=== PATIENT | female | born 1960 | race Caucasian/White ===

== ENCOUNTER 2017-02-13 13:32 | Emergency (ER) | payer OTHER ==
[~2017-02-13] VITALS: Ht 160 cm; Wt 97.1 kg
[~2017-02-13 13:32] MED LIST: HYDR25TA PO; PRED20TA PO
[2017-02-13 13:50] VITALS: BP 147/76
[2017-02-13] MEDS ORDERED: MUPI15CR TP (14:28)
--- NOTE | 2017-02-13 14:28 | PHYS DOC ---
Past Medical History Past Medical History: Arthritis, Other Additional Past Medical Histor: Cerebral Palsy, RA, OSTEOARTHRITIS, LUPUS, NERVE PAIN Past Surgical History: Cholecystectomy, Tubal ligation, Other Additional Past Surgical Histo: Several tendon stretching surgeries for CP, Tubal reversal Alcohol Use: Rarely Drug Use: None Adult General Chief Complaint Chief Complaint: SKIN PROBLEM HPI HPI Patient is a 56 year old female with a history of osteoarthritis, rheumatoid arthritis, currently on Humira, and lupus, who presents today with infection on the right posterior thigh that began 3 days ago. Patient states she's been applying triamcinolone cream to the are with no relief. Patient states she contacted her doctor who requested her to come to the ED to be given antibiotics. Patient states she is immunocompromised due to Humira hence the reason she has to be given antibiotics. Patient denies any fever. Review of Systems Review of Systems Constitutional: Denies fever or chills [] Eyes: Denies change in visual acuity, redness, or eye pain [] HENT: Denies nasal congestion or sore throat [] Musculoskeletal: Denies back pain or joint pain [] Integument: Infection to the right posterior thigh Neurologic: Denies headache, focal weakness or sensory changes [] Endocrine: Denies polyuria or polydipsia [] Allergies Allergies Allergies Coded Allergies Type Severity Reaction Last Updated Verified tramadol Adverse Reaction Mild gi upset 12/17/15 Yes Uncoded Allergies Type Severity Reaction Last Updated Verified fiberglass Allergy Intermediate Resp difficulty, rash and swelling. 08/25/16 Physical Exam Physical Exam Constitutional: Well developed, well nourished, no acute distress, non-toxic appearance. [] HENT: Normocephalic, atraumatic, bilateral external ears normal, oropharynx moist, no oral exudates, nose normal. [] Eyes: PERRLA, EOMI, conjunctiva normal, no discharge. [] Skin: Right posterior distal thigh with a small area of erythema approximately 3 x 3 cm. There is peeled skin to the area, no drainage. +2 right pedal pulse. Cap refill less than 2 seconds the right lower extremity. Back: No tenderness, no CVA tenderness. [] Extremities: No tenderness, no cyanosis, no clubbing, ROM intact, no edema. [] Neurologic: Alert and oriented X 3, normal motor function, normal sensory function, no focal deficits noted. [] Psychologic: Affect normal, judgement normal, mood normal. [] EKG EKG [] Radiology/Procedures Radiology/Procedures [] Course & Med Decision Making Course & Med Decision Making Pertinent Labs and Imaging studies reviewed. (See chart for details) Patient has a small area of skin infection on the right posterior thigh, the area is too small to require systemic antibiotics. DC with Bactroban. She is immune compromise. No tetanus given in the ED. Instructed to keep the area clean and dry and follow-up with the primary care doctor in 1-2 weeks. Dragon Disclaimer Dragon Disclaimer This electronic medical record was generated, in whole or in part, using a voice recognition dictation system. Departure Departure Impression: Primary Impression: Bacterial skin infection of leg Disposition: HOME, SELF-CARE Condition: STABLE Referrals: JOSE FRANCISCO CASTELLANOS MD (PCP) Follow-up with your own doctor in 1-2 weeks Patient Instructions: Skin Infections Additional Instructions: You were seen for skin infection on the right lower extremity. Use the prescribed antibiotic cream as ordered. Follow-up with your doctor in 1-2 weeks. Scripts Mupirocin Calcium (BACTROBAN CREAM) 15 Gm Cream..g. 1 SYED TP TID, #30 GM Prov: JOSE LARIOS APRN 02/13/17 Problem Qualifiers Primary Impression: Bacterial skin infection of leg Laterality: right Qualified Codes: L03.115 - Cellulitis of right lower limb JOSE LARIOS APRN February 13, 2017 14:28
== END 2017-02-13 14:50 | disposition home or self-care (01) ==
LOC: ER 13:32
DX: L08.89 Other specified local infections of the skin and subcutaneous tissue (principal); M19.90 Unspecified osteoarthritis, unspecified site; Z88.6 Allergy status to analgesic agent
CPT/HCPCS: 99283

== ENCOUNTER 2017-09-15 19:04 | Emergency (ER) | payer OTHER ==
[~2017-09-15] VITALS: Ht 162.6 cm; Wt 100.2 kg
[~2017-09-15 19:04] MED LIST changes: +MUPI15CR TP
[2017-09-15 20:06] VITALS: BP 134/96
[2017-09-15 20:49] LABS: BASO % 1 % (0-3); EOS % 2 % (0-3); HEMOGLOBIN 12.3 g/dL (12.0-15.5); LYMPH # 1.3 x10^3/uL (1.0-4.8); LYMPH % 51 % (24-48); MEAN CORPUSCULAR HEMOGLOBIN 35 pg (25-35); MEAN CORPUSCULAR HGB CONC 34 g/dL (31-37); MEAN CORPUSCULAR VOLUME 102 fL (79-100); MONO % 20 % (0-9); NEUT % 26 % (31-73); PLATELET COUNT 220 x10^3/uL (140-400); RED BLOOD COUNT 3.52 x10^6/uL (3.50-5.40); RED CELL DISTRIBUTION WIDTH 14.5 % (11.5-14.5); WHITE BLOOD COUNT 2.7 x10^3/uL (4.0-11.0)
[2017-09-15 20:57] LABS: OBC FLU VALID
[2017-09-15 21:01] LABS: CALCIUM 8.5 mg/dL (8.5-10.1); CREATININE 0.7 mg/dL (0.6-1.0); GFR 86.6; POTASSIUM 3.2 mmol/L (3.5-5.1)
[2017-09-15 21:09] LABS: ALBUMIN 3.6 g/dL (3.4-5.0); ALBUMIN/GLOBULIN RATIO 1.1 (1.0-1.7); TOTAL BILIRUBIN 0.3 mg/dL (0.2-1.0); TOTAL PROTEIN 6.8 g/dL (6.4-8.2)
[2017-09-15 21:11] LABS: % BASOS 1 % (0-3); ANISOCYTOSIS SLIGHT; PLT ESTIMATE ADEQUATE (ADEQUATE)
[2017-09-15 22:08] LABS: BILIRUBIN,URINE NEGATIVE (NEG); GLUCOSE,URINE NEGATIVE (NEG); NITRITE,URINE NEGATIVE (NEG); PROTEIN,URINE NEGATIVE (NEG-TRACE); UROBILINOGEN,URINE 0.2 mg/dL (0.2 mg/dL)
[2017-09-15 22:20] LABS: BACTERIA,URINE 0 /HPF (0-FEW); RBC,URINE 0 /HPF (0-2); SQUAMOUS EPITHELIAL CELL,UR FEW /LPF
[2017-09-15] MEDS ORDERED: FLUCONAZOLE 100 MG TABLET. PO ONE (23:00)
[2017-09-15] MEDS ORDERED: POTASSIUM CHLORIDE 20 MEQ/15 ML ORAL LIQUID. PO ONE (23:15)
[2017-09-15] MEDS ORDERED: POTASSIUM CHLORIDE 20 MEQ TABLET.ER. PO ONE (23:19)
--- NOTE | 2017-09-16 01:52 | ED.ADGEN ---
Past Medical History Past Medical History: Arthritis, Other Additional Past Medical Histor: Cerebral Palsy, RA, OSTEOARTHRITIS, LUPUS, NERVE PAIN Past Surgical History: Cholecystectomy, Tubal ligation, Other Additional Past Surgical Histo: Several tendon stretching surgeries for CP, Tubal reversal Alcohol Use: Occasionally Drug Use: Marijuana Adult General Chief Complaint Chief Complaint: MULTIPLE COMPLAINTS HPI HPI Patient is a 56 year old woman, history of rheumatoid arthritis for which she receives Humira injections, cerebral palsy, who presents to the emergency department with complaint of nasal congestion, cough is nonproductive, generalized malaise that began several days ago. Patient states that she received her Humira injection on Friday, states that she went to a baby shower the next day, and began feeling ill the day afterwards. She states that she's had chills at home, and subjective fevers, states she has not taken any her antipyretics, noted be afebrile in the emergency department. She states she's also had multiple sodas of loose brown stool, no blood or bile, denies any vomiting, states that she's had some abdominal cramping which is currently resolved. No nausea, no chest pain or shortness breath, no focal weakness, numbness or tingling, any swelling extremities, any rashes. She states she's been treating herself at home using hot tea, and antihistamine medication. Patient states he did receive her flu vaccination. She states that she contacted her doctor today, was told to come to the ED for evaluation to make sure that she does not have the flu. Patient states that she also experiencing itching and concern for yeast infection in the groin region, states she been treated with nystatin by her primary care provider feels that it is not working. Review of Systems Review of Systems Constitutional: Subjective chills, fever, generalized malaise. Eyes: Denies change in visual acuity. [] HENT: Denies nasal congestion or sore throat. [] Respiratory: Denies cough or shortness of breath. [] Cardiovascular: Denies chest pain or edema. [] GI: Abdominal cramping, nausea, no vomiting, no bloody stools, multiple episodes of loose brown stool. : Denies dysuria. [] Musculoskeletal: Denies back pain or joint pain. [] Integument: Denies rash. [] Neurologic: Denies headache, focal weakness or sensory changes. [] Endocrine: Denies polyuria or polydipsia. [] Lymphatic: Denies swollen glands. [] Psychiatric: Denies depression or anxiety. [] Current Medications Current Medications Current Medications Medications (Trade) Dose Ordered Sig/Armin Start Time Stop Time Status Last Admin Dose Admin Fluconazole (Diflucan) 100 mg 1X ONCE 09/15/17 23:00 09/15/17 23:01 DC 09/15/17 23:30 100 MG Potassium Chloride (KCl Oral Soln) 40 meq 1X ONCE 09/15/17 23:15 09/15/17 23:20 DC 09/15/17 23:30 40 MEQ Potassium Chloride (Klor-Con) 20 meq STK-MED ONCE 09/15/17 23:19 09/15/17 23:20 DC Allergies Allergies Allergies Coded Allergies Type Severity Reaction Last Updated Verified tramadol Adverse Reaction Mild gi upset 12/17/15 Yes Uncoded Allergies Type Severity Reaction Last Updated Verified fiberglass Allergy Intermediate Resp difficulty, rash and swelling. 08/25/16 Physical Exam Physical Exam Constitutional: Well developed, well nourished, no acute distress, non-toxic appearance. [] HENT: Normocephalic, atraumatic, bilateral external ears normal, oropharynx moist, mildly injected oropharynx, patient with turbinate swelling bilaterally with clear rhinorrhea, mild post nasal drip, no oral exudates, nose normal. [] Eyes: PERRLA, EOMI, conjunctiva normal, no discharge. [] Neck: Normal range of motion, no tenderness, supple, no stridor. [] Cardiovascular:Heart rate regular rhythm, no murmur, S1, S2, no rubs or gallops. [] Lungs & Thorax: Bilateral breath sounds clear to auscultation, no wheezing, rhonchi, rales. No chest wall crepitus or tenderness. [] Abdomen: Bowel sounds normal, soft, no tenderness, no rebound, rigidity, no guarding, no masses, no pulsatile masses. [] Skin: Warm, dry, patient noted to have mild irritation noted in the intertriginous regions of the groin bilaterally, no evidence of scaling, flaking , abscess formation or induration. Back: No tenderness, no CVA tenderness. [] Extremities: No tenderness, no cyanosis, no clubbing, ROM intact, no edema. Negative Homans sign.[] Neurologic: Alert and oriented X 3, normal motor function, normal sensory function, no focal deficits noted. [] Psychologic: Affect normal, judgement normal, mood normal. [] Current Patient Data Vital Signs Vital Signs Date Time Temp Pulse Resp B/P (MAP) Pulse Ox O2 Delivery O2 Flow Rate FiO2 09/15/17 20:06 97.9 96 22 134/96 (109) 96 Room Air 97.9 Lab Values Laboratory Tests Test 09/15/17 20:02 09/15/17 20:40 09/15/17 21:56 Influenza Type A Antigen Negative (NEGATIVE) Influenza Type B Antigen Negative (NEGATIVE) White Blood Count 2.7 x10^3/uL (4.0-11.0) L Red Blood Count 3.52 x10^6/uL (3.50-5.40) Hemoglobin 12.3 g/dL (12.0-15.5) Hematocrit 36.0 % (36.0-47.0) Mean Corpuscular Volume 102 fL (79-100) H Mean Corpuscular Hemoglobin 35 pg (25-35) Mean Corpuscular Hemoglobin Concent 34 g/dL (31-37) Red Cell Distribution Width 14.5 % (11.5-14.5) Platelet Count 220 x10^3/uL (140-400) Neutrophils (%) (Auto) 26 % (31-73) L Lymphocytes (%) (Auto) 51 % (24-48) H Monocytes (%) (Auto) 20 % (0-9) H Eosinophils (%) (Auto) 2 % (0-3) Basophils (%) (Auto) 1 % (0-3) Neutrophils # (Auto) 0.7 x10^3uL (1.8-7.7) L Lymphocytes # (Auto) 1.3 x10^3/uL (1.0-4.8) Monocytes # (Auto) 0.5 x10^3/uL (0.0-1.1) Eosinophils # (Auto) 0.0 x10^3/uL (0.0-0.7) Basophils # (Auto) 0.0 x10^3/uL (0.0-0.2) Segmented Neutrophils % 31 % (35-66) L Band Neutrophils % 1 % (0-9) Lymphocytes % 56 % (24-48) H Monocytes % 11 % (0-10) H Basophils % 1 % (0-3) Platelet Estimate Adequate (ADEQUATE) Anisocytosis Slight Sodium Level 142 mmol/L (136-145) Potassium Level 3.2 mmol/L (3.5-5.1) L Chloride Level 107 mmol/L (98-107) Carbon Dioxide Level 26 mmol/L (21-32) Anion Gap 9 (6-14) Blood Urea Nitrogen 6 mg/dL (7-20) L Creatinine 0.7 mg/dL (0.6-1.0) Estimated GFR (Cockcroft-Gault) 86.6 BUN/Creatinine Ratio 9 (6-20) Glucose Level 96 mg/dL (70-99) Calcium Level 8.5 mg/dL (8.5-10.1) Total Bilirubin 0.3 mg/dL (0.2-1.0) Aspartate Amino Transferase (AST) 16 U/L (15-37) Alanine Aminotransferase (ALT) 26 U/L (14-59) Alkaline Phosphatase 56 U/L (46-116) Total Protein 6.8 g/dL (6.4-8.2) Albumin 3.6 g/dL (3.4-5.0) Albumin/Globulin Ratio 1.1 (1.0-1.7) Urine Collection Type Unknown Urine Color Yellow Urine Clarity Clear Urine pH 6.0 Urine Specific [place] 1.010 Urine Protein Negative mg/dL (NEG-TRACE) Urine Glucose (UA) Negative mg/dL (NEG) Urine Ketones (Stick) Negative mg/dL (NEG) Urine Blood Negative (NEG) Urine Nitrite Negative (NEG) Urine Bilirubin Negative (NEG) Urine Urobilinogen Dipstick 0.2 mg/dL (0.2 mg/dL) Urine Leukocyte Esterase Small (NEG) Urine RBC 0 /HPF (0-2) Urine WBC 5-10 /HPF (0-4) Urine Squamous Epithelial Cells Few /LPF Urine Bacteria 0 /HPF (0-FEW) Urine Mucus Slight /LPF Laboratory Tests 09/15/17 20:40 Laboratory Tests 09/15/17 20:40 EKG EKG Not indicated. Radiology/Procedures Radiology/Procedures Chest x-ray: PA and lateral 2 view: She with hyperinflation, suboptimal view noted, but no evidence of infiltrate, effusion, pneumothorax, soft tissue or bony abnormality identified. As interpreted by me.[] Course & Med Decision Making Course & Med Decision Making Pertinent Labs and Imaging studies reviewed. (See chart for details) Patient with evidence of post nasal drip and swelling of the turbinates bilaterally with clear rhinorrhea, no evidence of lower airspace disease and examination or on chest x-ray. Laboratory studies were obtained based patient's complaint and history of recent Humira injection. Patient with a white count of 2.7, noted to have 1% bands, potassium of 3.2. Patient's laboratory studies and presentation discussed with Dr. Everett of hematology oncology, who believes the patient's mild bowel suppression are consistent with recently use, no indications for additional adjustments or interventions at this time based on patient's presentation, as she is afebrile with stable vital signs in the ED, no evidence of lower aspect disease. Patient did receive oral repletion of potassium in the emergency department. Patient tolerated without issue, has not experienced any further diarrhea or other complaints during her ED course. She states that she "is really ready to go home". She was instructed to follow-up with her primary care provider in the next 3 days for reevaluation, given instructions regarding potassium supple mentation her diet, to continue using [id number] medications for treatment of viral syndrome, and to stay well- hydrated, and to return to the emergency department if any new or concerning symptoms develop. Patient voiced understanding with instructions, follow plan and precautions, discharged home in stable condition with significant other in stable condition. Dragon Disclaimer Dragon Disclaimer This electronic medical record was generated, in whole or in part, using a voice recognition dictation system. Departure Impression: Primary Impression: Viral illness Disposition: HOME, SELF-CARE Condition: STABLE JAELYN BYRNES DO Sep 16, 2017 01:52
--- NOTE | 2017-09-16 08:01 | RAD ---
Chest, 2 views, 09/15/2017: History: Cough, shortness of breath The heart size is normal. There is an abnormal density in the right paratracheal region compatible with a right-sided aortic arch. The abdominal situs appears to be normal. The pulmonary vascularity is normal. No pulmonary infiltrates are seen. There is no evidence of pleural fluid. Minimal spurring is present in the spine. IMPRESSION: 1. Right-sided aortic arch. 2. No acute cardiopulmonary abnormality is detected.
== END 2017-09-15 23:47 | disposition home or self-care (01) ==
LOC: ER 19:04
DX: B34.9 Viral infection, unspecified (principal); M06.9 Rheumatoid arthritis, unspecified; G80.9 Cerebral palsy, unspecified; M32.9 Systemic lupus erythematosus, unspecified; F12.10 Cannabis abuse, uncomplicated; Z88.5 Allergy status to narcotic agent; Z91.048 Other nonmedicinal substance allergy status
CPT/HCPCS: 36415; 71020; 80053; 81001; 85007; 85025; 87086; 87804; 99285-25

== ENCOUNTER 2017-09-20 11:30 | Emergency (ER) | payer OTHER ==
[~2017-09-20] VITALS: Ht 160 cm; Wt 100.2 kg
--- NOTE | 2017-09-20 11:53 | PHYS DOC ---
Past Medical History Past Medical History: Arthritis, Other Additional Past Medical Histor: Cerebral Palsy, RA, OSTEOARTHRITIS, LUPUS, NERVE PAIN Past Surgical History: Cholecystectomy, Tubal ligation, Other Additional Past Surgical Histo: Several tendon stretching surgeries for CP, Tubal reversal Alcohol Use: Occasionally Drug Use: Marijuana Adult General Chief Complaint Chief Complaint: Congestion HPI HPI Patient is a 56 year old female presenting to the emergency department for evaluation of cough congestion shortness of breath. Patient states that she was seen 4 days ago for this and was told she had a viral upper respiratory tract infection and was discharged with supportive treatment. She received her Remicade infusion and traveled and says that since traveling she is feeling worse in that she is wheezing and coughing up yellowish green mucus. She states that she does not have an inhaler and she feels slightly short of breath and she has no hemoptysis or unilateral leg swelling. She denies any prior DVT or PE. She looks nontoxic with normal vital signs rather she seems most concerned about her relative immune suppression and concern for possible pneumonia. Review of Systems Review of Systems Constitutional: Denies fever or chills [] Eyes: Denies change in visual acuity, redness, or eye pain [] HENT: + nasal congestion, sore throat [] Respiratory: + cough, shortness of breath [] Cardiovascular: No additional information not addressed in HPI [] GI: Denies abdominal pain, nausea, vomiting, bloody stools or diarrhea [] : Denies dysuria or hematuria [] Musculoskeletal: Denies back pain or joint pain [] Integument: Denies rash or skin lesions [] Neurologic: Denies headache, focal weakness or sensory changes [] All other systems were reviewed and found to be within normal limits, except as documented in this note. Current Medications Current Medications Current Medications Medications (Trade) Dose Ordered Sig/Armin Start Time Stop Time Status Last Admin Dose Admin Acetaminophen/ Hydrocodone Bitart (Lortab 5/325) 2 tab 1X ONCE 09/20/17 13:30 09/20/17 13:31 DC 09/20/17 13:20 2 TAB Albuterol Sulfate (Ventolin Neb Soln) 5 mg 1X ONCE 09/20/17 12:15 09/20/17 12:16 DC 09/20/17 12:28 5 MG Albuterol/ Ipratropium (Duoneb) 3 ml 1X ONCE 09/20/17 12:15 129/17 12:16 DC 09/20/17 12:29 3 ML Sodium Chloride 500 ml @ 500 mls/hr 1X ONCE 09/20/17 12:15 09/20/17 13:14 DC 09/20/17 12:45 500 MLS/HR Allergies Allergies Allergies Coded Allergies Type Severity Reaction Last Updated Verified No Known Medication Allergies Allergy Unknown 09/20/17 Yes tramadol Adverse Reaction Mild gi upset 12/17/15 Yes Uncoded Allergies Type Severity Reaction Last Updated Verified fiberglass Allergy Intermediate Resp difficulty, rash and swelling. 08/25/16 Physical Exam Physical Exam Constitutional: Well developed, well nourished, no acute distress, non-toxic appearance. [] HENT: Normocephalic, atraumatic, bilateral external ears normal, oropharynx moist, no oral exudates, nose normal. [] Eyes: PERRLA, EOMI, conjunctiva normal, no discharge. [] Neck: Normal range of motion, no tenderness, supple, no stridor. [] Cardiovascular:Heart rate regular rhythm, no murmur [] Lungs & Thorax: Bilateral breath sounds diminished with inspiratory and expiratory wheezing noted Abdomen: Bowel sounds normal, soft, no tenderness, no masses, no pulsatile masses. [] Skin: Warm, dry, no erythema, no rash. [] Back: No tenderness, no CVA tenderness. [] Extremities: No tenderness, no cyanosis, no clubbing, ROM intact, no edema. [] Neurologic: Alert and oriented X 3, normal motor function, normal sensory function, no focal deficits noted. [] Current Patient Data Vital Signs Vital Signs Date Time Temp Pulse Resp B/P (MAP) Pulse Ox O2 Delivery O2 Flow Rate FiO2 09/20/17 13:20 18 98 Room Air 09/20/17 11:56 85 179/91 (120) Lab Values Laboratory Tests Test 09/20/17 12:35 White Blood Count 2.7 x10^3/uL (4.0-11.0) L Red Blood Count 3.80 x10^6/uL (3.50-5.40) Hemoglobin 12.8 g/dL (12.0-15.5) Hematocrit 38.7 % (36.0-47.0) Mean Corpuscular Volume 102 fL (79-100) H Mean Corpuscular Hemoglobin 34 pg (25-35) Mean Corpuscular Hemoglobin Concent 33 g/dL (31-37) Red Cell Distribution Width 14.3 % (11.5-14.5) Platelet Count 224 x10^3/uL (140-400) Neutrophils (%) (Auto) 22 % (31-73) L Lymphocytes (%) (Auto) 50 % (24-48) H Monocytes (%) (Auto) 24 % (0-9) H Eosinophils (%) (Auto) 4 % (0-3) H Basophils (%) (Auto) 1 % (0-3) Neutrophils # (Auto) 0.6 x10^3uL (1.8-7.7) L Lymphocytes # (Auto) 1.3 x10^3/uL (1.0-4.8) Monocytes # (Auto) 0.6 x10^3/uL (0.0-1.1) Eosinophils # (Auto) 0.1 x10^3/uL (0.0-0.7) Basophils # (Auto) 0.0 x10^3/uL (0.0-0.2) Segmented Neutrophils % 21 % (35-66) L Band Neutrophils % 1 % (0-9) Lymphocytes % 45 % (24-48) Atypical Lymphocytes % (Manual) 2 % (0-0) H Monocytes % 23 % (0-10) H Eosinophils % 8 % (0-5) H Platelet Estimate Adequate (ADEQUATE) Sodium Level 137 mmol/L (136-145) Potassium Level 4.1 mmol/L (3.5-5.1) Chloride Level 101 mmol/L (98-107) Carbon Dioxide Level 24 mmol/L (21-32) Anion Gap 12 (6-14) Blood Urea Nitrogen 11 mg/dL (7-20) Creatinine 0.6 mg/dL (0.6-1.0) Estimated GFR (Cockcroft-Gault) 103.4 BUN/Creatinine Ratio 18 (6-20) Glucose Level 105 mg/dL (70-99) H Lactic Acid Level 1.5 mmol/L (0.4-2.0) Calcium Level 8.9 mg/dL (8.5-10.1) Magnesium Level 1.7 mg/dL (1.8-2.4) L Total Bilirubin 0.2 mg/dL (0.2-1.0) Aspartate Amino Transferase (AST) 22 U/L (15-37) Alanine Aminotransferase (ALT) 23 U/L (14-59) Alkaline Phosphatase 65 U/L (46-116) Creatine Kinase 70 U/L (26-192) SP-Tqt-M-Type Natriuretic Peptide 84 pg/mL (0-124) Total Protein 6.8 g/dL (6.4-8.2) Albumin 3.7 g/dL (3.4-5.0) Albumin/Globulin Ratio 1.2 (1.0-1.7) Laboratory Tests 09/20/17 12:35 Laboratory Tests 09/20/17 12:35 EKG EKG [] Radiology/Procedures Radiology/Procedures Chest x-ray shows normal mediastinum and normal heart size no obvious free air pneumothorax or opacity. Course & Med Decision Making Course & Med Decision Making Patient seems to have or progression of her upper respiratory infection and now she has wheezing. Will recheck labs x-ray and reassess. Patient given breathing treatments and shortness of breath and wheezing resolved with improved aeration of her lungs. Her vital signs continued to be completely normal. Her workup is essentially unchanged but she has been sick for almost one week no such she'll be discharged on Zithromax told to use albuterol inhaler Nasonex [id number] follow with primary care provider in 2-3 days and come back to the ED sooner with worsening pain charts of breath or other general concerns. Patient aware and agreeable with plan for discharge and verbalized understanding of the need for short-term follow-up and strict ED return precautions discussed worsening pain fevers vomiting or other general concerns. Dragon Disclaimer Dragon Disclaimer This electronic medical record was generated, in whole or in part, using a voice recognition dictation system. Departure Departure Impression: Primary Impression: URI (upper respiratory infection) Additional Impressions: Sinusitis Wheezing Disposition: 01 HOME, SELF-CARE Condition: STABLE Referrals: JOSE FRANCISCO CASTELLANOS MD (PCP) Patient Instructions: Upper Respiratory Infection, Adult Additional Instructions: USE OTC NASONEX. FOLLOW WITH YOUR DOCTOR THIS WEEK AND COME BACK TO THE ED SOONER WITH ANY NEW OR WORSENING PAIN, SOA, OR OTHER GENERAL CONCERNS. THANK YOU! Scripts Azithromycin (ZITHROMAX) 250 Mg Tablet 1 PKG PO UD, #6 TAB Prov: BOBBI CORTEZ DO 09/20/17 Albuterol Sulfate (PROAIR HFA INHALER) 8.5 Gm Hfa.aer.ad 1 PUFF INH Q4HRS Y for SHORTNESS OF BREATH, #1 INHALER 0 Refills Prov: BOBBI CORTEZ DO 09/20/17 Problem Qualifiers Primary Impression: URI (upper respiratory infection) URI type: unspecified URI Qualified Codes: J06.9 - Acute upper respiratory infection, unspecified BOBBI CORTEZ DO Sep 20, 2017 11:52
[2017-09-20] MEDS ORDERED: IPRATRPIUM/ALBUTEROL 0.5/2.5MG 3 ML NEBU. NEB ONE (12:15)
[2017-09-20] MEDS ORDERED: IV NORMAL SALINE 500ML BAG 500 ML IV ONE (12:15)
[2017-09-20] MEDS ORDERED: ALBUTEROL SULFATE 2.5 MG/3 ML NEBU. NEB ONE (12:15)
[2017-09-20 13:01] LABS: BASO % 1 % (0-3); EOS % 4 % (0-3); HEMATOCRIT 38.7 % (36.0-47.0); HEMOGLOBIN 12.8 g/dL (12.0-15.5); LYMPH # 1.3 x10^3/uL (1.0-4.8); LYMPH % 50 % (24-48); MEAN CORPUSCULAR HEMOGLOBIN 34 pg (25-35); MEAN CORPUSCULAR HGB CONC 33 g/dL (31-37); MEAN CORPUSCULAR VOLUME 102 fL (79-100); MONO % 24 % (0-9); NEUT % 22 % (31-73); PLATELET COUNT 224 x10^3/uL (140-400); RED CELL DISTRIBUTION WIDTH 14.3 % (11.5-14.5); WHITE BLOOD COUNT 2.7 x10^3/uL (4.0-11.0)
[2017-09-20 13:13] LABS: CALCIUM 8.9 mg/dL (8.5-10.1); CREATININE 0.6 mg/dL (0.6-1.0); GFR 103.4; POTASSIUM 4.1 mmol/L (3.5-5.1)
[2017-09-20 13:20] LABS: ALBUMIN 3.7 g/dL (3.4-5.0); ALBUMIN/GLOBULIN RATIO 1.2 (1.0-1.7); MAGNESIUM 1.7 mg/dL (1.8-2.4); TOTAL BILIRUBIN 0.2 mg/dL (0.2-1.0); TOTAL PROTEIN 6.8 g/dL (6.4-8.2)
[2017-09-20] MEDS ORDERED: HYDROcodone/APAP 5/325MG 1 TAB TABLET PO ONE (13:30)
[2017-09-20 14:07] LABS: % EOS 8 % (0-5); PLT ESTIMATE ADEQUATE (ADEQUATE)
[2017-09-20] MEDS ORDERED: PROAIR HFA8.5 GM INH (14:15)
[2017-09-20] MEDS ORDERED: AZIT250T PO (14:15)
[2017-09-20 14:30] VITALS: BP 162/86
--- NOTE | 2017-09-21 08:27 | RAD ---
AP chest. History: Short of air AP view was taken of the chest. There is mild linear scarring or atelectasis in the right lung. The minor fissure. There are no other infiltrates. Heart is normal in size. There is no effusion. Impression: 1. Minimal linear right scarring or atelectasis without other infiltrates.
== END 2017-09-20 14:53 | disposition home or self-care (01) ==
LOC: ER 11:30
DX: J06.9 Acute upper respiratory infection, unspecified (principal); J32.9 Chronic sinusitis, unspecified; M19.90 Unspecified osteoarthritis, unspecified site; L93.0 Discoid lupus erythematosus; G80.9 Cerebral palsy, unspecified; M06.9 Rheumatoid arthritis, unspecified; F12.10 Cannabis abuse, uncomplicated; Z90.49 Acquired absence of other specified parts of digestive tract; Z88.5 Allergy status to narcotic agent; Z91.048 Other nonmedicinal substance allergy status
CPT/HCPCS: 36415; 71010; 80053; 82550; 83605; 83735; 83880; 85007; 85025; 94250; 94640; 96360; 99285; J7040; J7613; J7620

== ENCOUNTER 2017-09-28 23:38 | Emergency (ER) | payer OTHER ==
[~2017-09-28] VITALS: Ht 162.6 cm; Wt 100.2 kg
[~2017-09-28 23:38] MED LIST changes: +AZIT250T PO; +PROAIR HFA8.5 GM INH
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
[2017-09-29] MEDS ORDERED: silver sulfADIAZINE 1% CREAM 25GM TUBE. TP ONE (00:15)
[2017-09-29 00:25] VITALS: BP 168/95
== END 2017-09-29 00:46 | disposition home or self-care (01) ==
LOC: ER 23:38
DX: T28.2XXA Burn of other parts of alimentary tract, initial encounter (principal); T24.012A Burn of unspecified degree of left thigh, initial encounter; M32.9 Systemic lupus erythematosus, unspecified; M06.9 Rheumatoid arthritis, unspecified; F12.10 Cannabis abuse, uncomplicated; Z88.6 Allergy status to analgesic agent; Z88.8 Allergy status to other drugs, medicaments and biological substances; Y27.8XXA Contact with other hot objects, undetermined intent, initial encounter; Y93.89 Activity, other specified; Y99.8 Other external cause status; Y92.89 Other specified places as the place of occurrence of the external cause
CPT/HCPCS: 16020; 99284-25

== ENCOUNTER 2017-11-23 14:10 | Emergency (ER) | payer OTHER | END 2017-11-23 15:33 | disposition home or self-care (01) | LOC: ER 14:10 | DX: B02.9 Zoster without complications (principal); K22.70 Barrett's esophagus without dysplasia; M19.90 Unspecified osteoarthritis, unspecified site; M32.9 Systemic lupus erythematosus, unspecified; Z88.6 Allergy status to analgesic agent; Z88.8 Allergy status to other drugs, medicaments and biological substances | CPT/HCPCS: 87252; 99283 ==

== ENCOUNTER 2018-05-14 13:17 | Emergency (ER) | payer OTHER ==
[2018-05-14] MEDS: DIPHTH,PERTUSS(ACELL),TET TOX 0.5 ML DISP.SYRIN. VAX IM (13:52)
== END 2018-05-14 14:12 | disposition home or self-care (01) ==
LOC: ER 13:17
DX: S99.922A Unspecified injury of left foot, initial encounter (principal); Z88.6 Allergy status to analgesic agent; Z88.8 Allergy status to other drugs, medicaments and biological substances; X58.XXXA Exposure to other specified factors, initial encounter; Y93.89 Activity, other specified; Y99.8 Other external cause status; Y92.89 Other specified places as the place of occurrence of the external cause
CPT/HCPCS: 90471; 90715; 99284-25

== ENCOUNTER 2018-07-13 17:13 | Emergency (ER) | payer OTHER ==
[2018-05-14 13:17] VITALS: BP 154/73
[~2018-07-13 17:13] MED LIST changes: +ACYC800T PO
== END 2018-07-13 21:21 | disposition left against medical advice (07) ==
LOC: ER 17:13
DX: Z53.21 Procedure and treatment not carried out due to patient leaving prior to being seen by health care provider (principal); W19.XXXA Unspecified fall, initial encounter; Y93.89 Activity, other specified; Y92.89 Other specified places as the place of occurrence of the external cause; Y99.8 Other external cause status

== ENCOUNTER 2018-08-12 11:36 | Emergency (ER) | payer OTHER ==
[~2018-08-12] VITALS: Ht 160 cm; Wt 98.4 kg
[2018-08-12] MEDS ORDERED: ASPIRIN CHEWABLE 81 MG TABLET. PO ONE (12:15)
[2018-08-12] MEDS ORDERED: KETOROLAC 15 MG/ML VIAL. IV ONE (12:15)
--- NOTE | 2018-08-12 12:17 | EKG ---
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
--- NOTE | 2018-08-12 12:17 | PHYS DOC ---
Past Medical History Past Medical History: Arthritis, Other Additional Past Medical Histor: Cerebral Palsy, RA, OSTEOARTHRITIS, LUPUS, NERVE PAIN,Finn Esophagus Past Surgical History: Cholecystectomy, Tubal ligation, Other Additional Past Surgical Histo: Several tendon stretching surgeries for CP, Tubal reversal Alcohol Use: None Drug Use: Marijuana Adult General Chief Complaint Chief Complaint: RIB PAIN [facility] HPI Patient is a 57 year old female who presents with left lower chest pain. This started proximally 0 9:30 this morning, while patient was laying in bed. Patient reports that it is sore. Patient denies any nausea or vomiting. Reports it is tender to touch. Increased pain with movement. Mild worsening with deep breaths. Patient is wheelchair bound due to cerebral palsy. Patient denies any new swelling in her legs feet or ankles. Patient denies any shortness of breath. She denies any fever or cough. Patient reports that it is like a, "stitch in the side when you go running." She denies any worsening with exertion , however she does not exert herself because she is wheelchair bound. She has taken no medication to help with the pain. She reports the pain does get worse with being upright position and slightly improved with being recumbent in position. Review of Systems Review of Systems Constitutional: Denies fever or chills [] Eyes: Denies change in visual acuity, redness, or eye pain [] HENT: Denies nasal congestion or sore throat [] Respiratory: Denies cough or shortness of breath [] Cardiovascular: No additional information not addressed in HPI [] GI: Denies abdominal pain, nausea, vomiting, or bloody stools. She reports chronic diarrhea , which has been present for the past 2 days, and is normal for her.[] : Denies dysuria or hematuria [] Musculoskeletal: Denies back pain or joint pain [] Integument: Denies rash or skin lesions [] Neurologic: Denies headache, focal weakness or sensory changes [] Endocrine: Denies polyuria or polydipsia [] All other systems were reviewed and found to be within normal limits, except as documented in this note. Current Medications Current Medications Current Medications Medications (Trade) Dose Ordered Sig/Armin Start Time Stop Time Status Last Admin Dose Admin Aspirin (Children'S Aspirin) 324 mg 1X ONCE 08/12/18 12:15 08/12/18 12:16 DC 08/12/18 12:31 324 MG Ketorolac Tromethamine (Toradol 15mg Vial) 15 mg 1X ONCE 08/12/18 12:15 08/12/18 12:16 DC 08/12/18 12:31 15 MG Allergies Allergies Allergies Coded Allergies Type Severity Reaction Last Updated Verified tramadol Adverse Reaction Mild gi upset 12/17/15 Yes Uncoded Allergies Type Severity Reaction Last Updated Verified fiberglass Allergy Intermediate Resp difficulty, rash and swelling. 08/25/16 Physical Exam Physical Exam Constitutional: Well developed, well nourished, no acute distress, non-toxic appearance. [] HENT: Normocephalic, atraumatic, bilateral external ears normal, oropharynx moist, no oral exudates, nose normal. [] Eyes: PERRLA, EOMI, conjunctiva normal, no discharge. [] Neck: Normal range of motion, no tenderness, supple, no stridor. [] Cardiovascular:Heart rate regular rhythm, no murmur [] Lungs & Thorax: Bilateral breath sounds clear to auscultation [] Abdomen: Bowel sounds normal, soft, no tenderness, no masses, no pulsatile masses. [] Skin: Warm, dry, no erythema, no rash. [] Back: No tenderness, no CVA tenderness. [] Extremities: No tenderness, no cyanosis, no clubbing, ROM intact, no edema. [] Neurologic: Alert and oriented X 3, normal motor function, normal sensory function, no focal deficits noted. [] Psychologic: Affect normal, judgement normal, mood normal. [] Current Patient Data Vital Signs Vital Signs Date Time Temp Pulse Resp B/P (MAP) Pulse Ox O2 Delivery O2 Flow Rate FiO2 08/12/18 11:53 97.3 82 10 162/82 (108) 97 Room Air 97.3 Lab Values Laboratory Tests Test 08/12/18 12:15 White Blood Count 4.6 x10^3/uL (4.0-11.0) Red Blood Count 3.73 x10^6/uL (3.50-5.40) Hemoglobin 13.4 g/dL (12.0-15.5) Hematocrit 38.9 % (36.0-47.0) Mean Corpuscular Volume 105 fL (79-100) H Mean Corpuscular Hemoglobin 36 pg (25-35) H Mean Corpuscular Hemoglobin Concent 34 g/dL (31-37) Red Cell Distribution Width 15.1 % (11.5-14.5) H Platelet Count 263 x10^3/uL (140-400) Neutrophils (%) (Auto) 53 % (31-73) Lymphocytes (%) (Auto) 31 % (24-48) Monocytes (%) (Auto) 15 % (0-9) H Eosinophils (%) (Auto) 1 % (0-3) Basophils (%) (Auto) 0 % (0-3) Neutrophils # (Auto) 2.4 x10^3uL (1.8-7.7) Lymphocytes # (Auto) 1.4 x10^3/uL (1.0-4.8) Monocytes # (Auto) 0.7 x10^3/uL (0.0-1.1) Eosinophils # (Auto) 0.0 x10^3/uL (0.0-0.7) Basophils # (Auto) 0.0 x10^3/uL (0.0-0.2) Prothrombin Time 12.8 SEC (11.7-14.0) Prothrombin Time INR 1.0 (0.8-1.1) D-Dimer (Sheryl) 0.43 ug/mlFEU (0.00-0.50) Sodium Level 140 mmol/L (136-145) Potassium Level 4.3 mmol/L (3.5-5.1) Chloride Level 103 mmol/L (98-107) Carbon Dioxide Level 26 mmol/L (21-32) Anion Gap 11 (6-14) Blood Urea Nitrogen 12 mg/dL (7-20) Creatinine 0.6 mg/dL (0.6-1.0) Estimated GFR (Cockcroft-Gault) 103.0 BUN/Creatinine Ratio 20 (6-20) Glucose Level 97 mg/dL (70-99) Calcium Level 9.7 mg/dL (8.5-10.1) Magnesium Level 1.7 mg/dL (1.8-2.4) L Total Bilirubin 0.6 mg/dL (0.2-1.0) Aspartate Amino Transferase (AST) 29 U/L (15-37) Alanine Aminotransferase (ALT) 35 U/L (14-59) Alkaline Phosphatase 52 U/L (46-116) Troponin I Quantitative < 0.017 ng/mL (0.000-0.055) Total Protein 7.8 g/dL (6.4-8.2) Albumin 4.4 g/dL (3.4-5.0) Albumin/Globulin Ratio 1.3 (1.0-1.7) Lipase 98 U/L (73-393) Laboratory Tests 08/12/18 12:15 Laboratory Tests 08/12/18 12:15 EKG EKG EKG showed normal sinus rhythm at 83 bpm normal axis, no ST elevations, no previous EKGs were available for comparison, however serial EKGs were performed that showed no dynamic changes while in the emergency department[] Radiology/Procedures Radiology/Procedures Chest x-ray showed no acute abnormalities[] Course & Med Decision Making Course & Med Decision Making Pertinent Labs and Imaging studies reviewed. (See chart for details) ED course: Patient arrived, was placed in bed, had serial EKGs performed, and was given aspirin. Patient was also given pain medicine which did slightly improve her pain. Patient had not taken any of her home narcotic pain medicine because she did not want to mask anything. After the return of the imaging and lab tests, patient was reevaluated and found to be in improved condition. The findings were discussed with her. All questions were answered. Patient was discharged in improved condition. Medical decision making: There is no evidence of acute coronary syndrome nor STEMI, no evidence of pulmonary embolism, the d-dimer was normal. No evidence of pneumonia, negative chest x-ray. No evidence of pancreatic disease with a normal lipase. No evidence of pneumothorax based on chest x-ray. No evidence of Boerhaaves syndrome based on history. We'll start the patient on oral NSAIDs and have her perform her routine pain management with her usual narcotic pain medicine regimen.[] Dragon Disclaimer Dragon Disclaimer This electronic medical record was generated, in whole or in part, using a voice recognition dictation system. Departure Departure Impression: Primary Impression: Chest wall pain Disposition: 01 HOME, SELF-CARE Condition: GOOD Referrals: JOSE FRANCISCO CASTELLANOS MD (PCP) Follow-up with your regular doctor in 2 days. Patient Instructions: Chest Wall Pain Additional Instructions: Follow-up with your regular doctor. Take your pain medication as prescribed. Return to the ER if worsening pain, difficulty breathing, fever, or any other concerns. Scripts Meloxicam (MELOXICAM) 7.5 Mg Tablet 7.5 MG PO DAILY, #20 TAB Prov: MOLLY PALMER DO 08/12/18 MOLLY PALMER DO Aug 12, 2018 12:17
[2018-08-12 12:24] LABS: BASO % 0 % (0-3); EOS % 1 % (0-3); HEMATOCRIT 38.9 % (36.0-47.0); HEMOGLOBIN 13.4 g/dL (12.0-15.5); LYMPH # 1.4 x10^3/uL (1.0-4.8); LYMPH % 31 % (24-48); MEAN CORPUSCULAR HEMOGLOBIN 36 pg (25-35); MEAN CORPUSCULAR HGB CONC 34 g/dL (31-37); MEAN CORPUSCULAR VOLUME 105 fL (79-100); MONO # 0.7 x10^3/uL (0.0-1.1); MONO % 15 % (0-9); NEUT # 2.4 x10^3uL (1.8-7.7); NEUT % 53 % (31-73); PLATELET COUNT 263 x10^3/uL (140-400); RED BLOOD COUNT 3.73 x10^6/uL (3.50-5.40); RED CELL DISTRIBUTION WIDTH 15.1 % (11.5-14.5); WHITE BLOOD COUNT 4.6 x10^3/uL (4.0-11.0)
--- NOTE | 2018-08-12 12:39 | RAD ---
Exam: AP portable chest History: Left chest pain since 0900 hours. Comparison: September 20, 2017. Findings: The heart and mediastinal structures are within normal limits for size. Right aortic arch is seen. Lungs are without infiltrate. No pleural effusion or pneumothorax is identified. Impression: 1. No acute cardiopulmonary process. 2. Right aortic arch. Electronically signed by: Lee Thomason MD (08/12/2018 12:36 PM) [place] [id number]
[2018-08-12 12:40] LABS: CALCIUM 9.7 mg/dL (8.5-10.1); CREATININE 0.6 mg/dL (0.6-1.0); POTASSIUM 4.3 mmol/L (3.5-5.1)
[2018-08-12 12:45] LABS: ALBUMIN 4.4 g/dL (3.4-5.0); ALBUMIN/GLOBULIN RATIO 1.3 (1.0-1.7); MAGNESIUM 1.7 mg/dL (1.8-2.4); PROTHROMBIN TIME PATIENT 12.8 SEC (11.7-14.0); TOTAL BILIRUBIN 0.6 mg/dL (0.2-1.0); TOTAL PROTEIN 7.8 g/dL (6.4-8.2)
[2018-08-12 12:50] LABS: D-DIMER 0.43 ug/mlFEU (0.00-0.50)
[2018-08-12] MEDS ORDERED: MELO7.5T29 PO (13:53)
--- NOTE | 2018-08-12 13:54 | EKG ---
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
[2018-08-12 14:00] VITALS: BP 153/99
--- NOTE | 2018-08-14 10:56 | EKG ---
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 BORDERLINE ECG Compared to ECG 08/12/2018 12:34:55 No significant changes Electronically Signed On 08-17-2018 12:34:33 NUTRITION THERAPIST by Yash Olmedo
== END 2018-08-12 14:35 | disposition home or self-care (01) ==
LOC: ER 11:36
DX: R07.89 Other chest pain (principal); R19.7 Diarrhea, unspecified; G80.9 Cerebral palsy, unspecified; M19.90 Unspecified osteoarthritis, unspecified site; Z90.49 Acquired absence of other specified parts of digestive tract; Z98.51 Tubal ligation status; Z99.3 Dependence on wheelchair; Z88.5 Allergy status to narcotic agent; Z91.048 Other nonmedicinal substance allergy status
CPT/HCPCS: 36415; 71045; 80053; 83690; 83735; 84484; 85025; 85379; 85610; 93005; 96374; 99285; J1885

== ENCOUNTER 2021-02-28 14:17 | Observation (INO) | payer MEDICAID, OTHER ==
[~2021-02-28] VITALS: Ht 160 cm; Wt 103.0 kg
[~2021-02-28 14:17] MED LIST changes: -ACYC800T PO; +ACYC800T88 PO; +ALBU2.5V8 INH; +MELO7.5T29 PO; -PROAIR HFA8.5 GM INH
--- NOTE | 2021-02-28 14:49 | PHYS DOC ---
Past Medical History Past Medical History: Arthritis, Other Additional Past Medical Histor: Cerebral Palsy, RA, OSTEOARTHRITIS, LUPUS, NERVE PAIN,Finn Esophagus Past Surgical History: Cholecystectomy, Tubal ligation, Other Additional Past Surgical Histo: Several tendon stretching surgeries for CP, Tubal reversal Smoking Status: Former Smoker Alcohol Use: None Drug Use: Marijuana General Adult EDM: Chief Complaint: HEADACHE HPI: HPI: This is a pleasant 60-year-old female presenting with a headache. She describes her headache started this morning. It reached 10 out of 10 severity but took more than an hour to reach maximal intensity. Her headache is currently improving and is now about 6 out of 10. She has a history of headaches but this is a different type of headache she describes. She denies any new focal neurologic deficits or any new neurologic changes as she has a baseline weakness in her legs from cerebral palsy. Review of systems: Negative for chest pain vomiting fevers chills. Negative for abdominal pain vomiting diaphoresis fevers chills or nuchal rigidity. She denies any vision changes. All other review of systems negative Review of Systems: Review of Systems: Constitutional: Denies fever or chills. [] Eyes: Denies change in visual acuity. [] HENT: Denies nasal congestion or sore throat. [] Respiratory: Denies cough or shortness of breath. [] Cardiovascular: Denies chest pain or edema. [] GI: Denies abdominal pain, nausea, vomiting, bloody stools or diarrhea. [] : Denies dysuria. [] Musculoskeletal: Denies back pain or joint pain. [] Integument: Denies rash. [] Neurologic: Denies headache, focal weakness or sensory changes. [] Endocrine: Denies polyuria or polydipsia. [] Lymphatic: Denies swollen glands. [] Psychiatric: Denies depression or anxiety. [] Heart Score: C/O Chest Pain: No Risk Factors: Risk Factors: DM, Current or recent (<one month) smoker, HTN, HLP, family history of CAD, obesity. Risk Scores: Score 0 - 3: 2.5% MACE over next 6 weeks - Discharge Home Score 4 - 6: 20.3% MACE over next 6 weeks - Admit for Clinical Observation Score 7 - 10: 72.7% MACE over next 6 weeks - Early Invasive Strategies Allergies: Allergies: Allergies Coded Allergies Type Severity Reaction Last Updated Verified tramadol Adverse Reaction Mild gi upset 12/17/15 Yes Uncoded Allergies Type Severity Reaction Last Updated Verified fiberglass Allergy Intermediate Resp difficulty, rash and swelling. 08/25/16 Physical Exam: PE: Constitutional: Well developed, well nourished, no acute distress, non-toxic appearance. [] HENT: Normocephalic, atraumatic, bilateral external ears normal, oropharynx moist, no oral exudates, nose normal. [] Eyes: PERRLA, EOMI, conjunctiva normal, no discharge. [] Neck: Normal range of motion, no tenderness, supple, no stridor. [] Cardiovascular:Heart rate regular rhythm, no murmur [] Lungs & Thorax: Bilateral breath sounds clear to auscultation [] Abdomen: Bowel sounds normal, soft, no tenderness, no masses, no pulsatile masses. [] Skin: Warm, dry, no erythema, no rash. [] Back: No tenderness, no CVA tenderness. [] Extremities: No tenderness, no cyanosis, no clubbing, ROM intact, no edema. [] Neurologic: Mental status: Awake oriented and alert x3 Cranial nerves: Extraocular movements intact, eyebrows taylor bilaterally, smile symmetric, uvula elevation nl, shoulder shrug intact bilaterally, tongue protrusion normal Clear speech. Normal [id number]. Sensation: Decreased sensation in the legs which is baseline for the patient. She describes a new sensation change in the tips of her fingers bilaterally. O therwise normal sensation which is equal. Strength: 5 out of 5 strength in the upper extremities without any drift. The patient's lower extremities have weakness on the left. She is able to wiggle toes but unable to lift the leg off the bed which is baseline for her. The right lower extremity is unable to move which is baseline for her. Psychologic: Affect normal, judgement normal, mood normal. [] EKG: EKG: [] Radiology/Procedures: Radiology/Procedures: [] Course & Med Decision Making: Course & Med Decision Making Pertinent Labs and Imaging studies reviewed. (See chart for details) [] 60-year-old female presenting with a headache. CT angiogram negative for acute findings. CT head shows possible subacute stroke. Recommends MRI. Patient improved with headache medication moderately but headache persists so I will order another dose of headache medication. I spoke with the hospitalist who accepts patient for admission. Lashanda Disclaimer: Dragon Disclaimer: This electronic medical record was generated, in whole or in part, using a voice recognition dictation system. Departure Departure Impression: Primary Impression: Headache syndrome, complicated Disposition: ADMITTED INPATIENT Admitting Physician: RENUKA Condition: STABLE Referrals: JOSE FRANCISCO CASTELLANOS MD (PCP) ZARIA TORRES MD February 28, 2021 14:49
[2021-02-28 15:14] LABS: BASO % 1 % (0-3); EOS % 1 % (0-3); HEMATOCRIT 38.5 % (36.0-47.0); HEMOGLOBIN 13.2 g/dL (12.0-15.5); LYMPH # 1.2 x10^3/uL (1.0-4.8); LYMPH % 33 % (24-48); MEAN CORPUSCULAR HEMOGLOBIN 36 pg (25-35); MEAN CORPUSCULAR HGB CONC 34 g/dL (31-37); MEAN CORPUSCULAR VOLUME 106 fL (79-100); MONO # 0.5 x10^3/uL (0.0-1.1); MONO % 13 % (0-9); NEUT # 1.9 x10^3/uL (1.8-7.7); NEUT % 52 % (31-73); PLATELET COUNT 254 x10^3/uL (140-400); RED BLOOD COUNT 3.62 x10^6/uL (3.50-5.40); WHITE BLOOD COUNT 3.6 x10^3/uL (4.0-11.0)
[2021-02-28] MEDS ORDERED: IV NORMAL SALINE 1000ML BAG 1,000 ML IV ONE ×2 (15:15→18:30)
[2021-02-28] MEDS ORDERED: METOCLOPRAMIDE 10 MG TABLET. PO ONE ×2 (15:15→18:30)
[2021-02-28] MEDS ORDERED: diphenhydrAMINE 50 MG/ML VIAL IVP ONE ×2 (15:15→18:30)
[2021-02-28 15:28] LABS: CALCIUM 8.7 mg/dL (8.5-10.1); CREATININE 0.8 mg/dL (0.6-1.0); GFR 73.2; POTASSIUM 3.9 mmol/L (3.5-5.1)
[2021-02-28 15:33] LABS: ALBUMIN 4.6 g/dL (3.4-5.0); ALBUMIN/GLOBULIN RATIO 1.6 (1.0-1.7); TOTAL BILIRUBIN 0.3 mg/dL (0.2-1.0); TOTAL PROTEIN 7.4 g/dL (6.4-8.2)
[2021-02-28] MEDS ORDERED: CONTRAST GIVEN. MC PRN (15:45)
[2021-02-28] MEDS ORDERED: IOHEXOL 350 MG/ML 100 ML VIAL. IV ONE (15:45)
--- NOTE | 2021-02-28 16:39 | RAD ---
EXAMINATION: CT HEAD/BRAIN WO (CT HEAD WITHOUT IV CONTRAST) CLINICAL HISTORY: Headache. History of cerebral palsy TECHNIQUE: Serial axial images without IV contrast were obtained from the vertex to the foramen magnu m. CT Dose Reduction Employed: One or more of the following individualized dose reduction techniques wer e utilized for this examination: 1. Automated exposure control 2. Adjustment of the mA and/or kV ac cording to patient size 3. Use of iterative reconstruction technique. COMPARISON: None FINDINGS: Acute Change: No definitive evidence of an acute infarct or other acute parenchymal process. Hemorrhage: No evidence of acute intracranial hemorrhage. Mass Lesion/Mass Effect: No evidence of intracranial mass or extraaxial fluid collection. No signific ant mass effect. Chronic Change: Asymmetrically prominent moderate hypoattenuation in the deep and subcortical white m atter in the left cerebral hemisphere. Germain/white matter differentiation relatively well-maintained. No associated significant gyral edema. Findings are nonspecific but could be related to a subacute in farct. Parenchyma: No significant volume loss. Parenchyma otherwise within normal limits for age. Ventricles: Ventricles within normal limits for age. Paranasal Sinuses and Skull Base: Visualized paranasal sinuses clear. Visualized skull base and soft tissues unremarkable. IMPRESSION: No definitive evidence of acute intracranial abnormality. Asymmetric changes in the left supratentorial white matter as described, possibly related to history of cerebral palsy but could also represent a subacute infarct. MRI could be obtained for further eval uation as indicated. Findings discussed with Panda Gonzalez at 02/28/2021 4:31 PM. Electronically signed by: Mohsen Blanchard DO (02/28/2021 4:36 PM) [facility]
--- NOTE | 2021-02-28 17:10 | RAD ---
Exam: CTA head and neck INDICATION: Headache TECHNIQUE: Sequential axial images through the head and neck obtained following the administration of 75 mL of Omni 350 IV contrast. Sagittal and coronal reformatted images were reconstructed from the a xial data and reviewed. 3-D reformatted images were reconstructed from the axial data and reviewed. Exposure: One or more of the following in the visualized dose reduction techniques were utilized for this examination: 1. Automated exposure control 2. Adjustment of the MA and/or KV according to patient size 3. Use of iterative of reconstructive technique Comparisons: 02/28/2021 FINDINGS: CTA NECK: There is a right aortic arch. Three-vessel aortic arch configuration noted. Right common carotid artery is patent without evidence of stenosis, occlusion or aneurysm. Cervical s egment of the right internal carotid artery is patent without evidence of stenosis, occlusion or aneu rysm. Left common carotid artery is patent without evidence of stenosis, occlusion or aneurysm. Cervical se gment of the left internal carotid artery is patent without evidence of stenosis, occlusion or aneury sm. Right vertebral artery is patent to the basilar confluence without evidence of stenosis, occlusion or aneurysm. Left vertebral artery is patent to the basilar confluence without evidence of stenosis, occlusion or aneurysm. Visualized soft tissues are unremarkable. CTA HEAD: Intracranial segments of the right internal carotid artery are patent without evidence of stenosis, o cclusion or aneurysm. Right MCA is patent. Right JOSE is patent. Intracranial segments of the left internal carotid artery is patent without evidence of stenosis, occ lusion or aneurysm. Left MCA is patent. Left JOSE is patent. Basilar artery is patent without evidence of stenosis, occlusion or aneurysm. intranet developer are patent bilater ally. IMPRESSION: 1. Patent intracranial cervical arterial vasculature without evidence of stenosis, occlusion or aneu rysm. 2. Incidental note of right aortic arch. Electronically signed by: Colton Keita MD (02/28/2021 5:07 PM) [facility]
[2021-02-28 19:00] VITALS: BP 138/68
[2021-02-28] MEDS ORDERED: METOCLOPRAMIDE HCL 10 MG/2 ML VIAL. IVP ONE (20:00)
[2021-02-28] MEDS: IV NORMAL SALINE 1000ML BAG 1,000 ML IV SCH (20:06)
[2021-02-28 23:00] VITALS: BP 125/73
[2021-03-01 03:00] VITALS: BP 125/58
[2021-03-01] MEDS ORDERED: BUSP10TA PO (03:33)
[2021-03-01] MEDS ORDERED: POTA-204 PO (03:33)
[2021-03-01] MEDS ORDERED: AMLO2.5T5 PO (03:33)
[2021-03-01] MEDS ORDERED: BACL20TA PO (03:33)
[2021-03-01] MEDS ORDERED: TOFA11TA PO (03:33)
[2021-03-01] MEDS ORDERED: DESM0.2T5 PO (03:33)
[2021-03-01] MEDS ORDERED: ESCI10TA90 PO (03:33)
[2021-03-01] MEDS ORDERED: PANT40TA6 PO (03:33)
[2021-03-01] MEDS ORDERED: TRAZ-123 PO (03:33)
[2021-03-01] MEDS ORDERED: METH25VI60 (03:33)
[2021-03-01] MEDS ORDERED: TACR30OI4 TP (03:33)
[2021-03-01] MEDS ORDERED: FURO20TA3 PO (03:33)
[2021-03-01 07:00] VITALS: BP 139/75
[2021-03-01 08:03] LABS: BASO % 1 % (0-3); EOS % 1 % (0-3); HEMATOCRIT 36.9 % (36.0-47.0); HEMOGLOBIN 12.4 g/dL (12.0-15.5); LYMPH # 0.7 x10^3/uL (1.0-4.8); LYMPH % 19 % (24-48); MEAN CORPUSCULAR HEMOGLOBIN 36 pg (25-35); MEAN CORPUSCULAR HGB CONC 34 g/dL (31-37); MEAN CORPUSCULAR VOLUME 108 fL (79-100); MONO # 0.6 x10^3/uL (0.0-1.1); MONO % 15 % (0-9); NEUT # 2.4 x10^3/uL (1.8-7.7); NEUT % 65 % (31-73); PLATELET COUNT 232 x10^3/uL (140-400); RED BLOOD COUNT 3.42 x10^6/uL (3.50-5.40); RED CELL DISTRIBUTION WIDTH 14.1 % (11.5-14.5); WHITE BLOOD COUNT 3.7 x10^3/uL (4.0-11.0)
[2021-03-01 08:19] LABS: CALCIUM 8.5 mg/dL (8.5-10.1); CREATININE 0.6 mg/dL (0.6-1.0)
--- NOTE | 2021-03-01 08:39 | PDOC1 ---
History and Physical Date of Service: DOS: DATE: 03/01/21 TIME: 08:35 Chief Complaint: Chief Complain: Headache History of Present Illness: HPI: 60-year-old female presenting with a headache. She describes her headache started this morning. It reached 10 out of 10 severity but took more than an hour to reach maximal intensity. Her headache is currently improving and is now about 6 out of 10. She has a history of headaches but this is a different type of headache she describes. She describes the headache static her head is going to explode and there is pressure between her temples. She denies any new focal neurologic deficits or any new neurologic changes as she has a baseline weakness in her legs from cerebral palsy. Of note, patient does use a wheelchair and she transfers between bed and wheelchair. Review of systems: Negative for chest pain vomiting fevers chills. Negative for abdominal pain vomiting diaphoresis fevers chills or nuchal rigidity. She denies any vision changes. All other review of systems negative Past Medical/Surgical History: PMH/PSH: Past Medical History: Arthritis, Cerebral Palsy, RA, OSTEOARTHRITIS, LUPUS, NERVE PAIN,Finn Esophagus Past Surgical History: Cholecystectomy, Tubal ligation, Several tendon stretching surgeries for CP, Tubal reversal Allergies: Allergies: Coded Allergies: tramadol (Verified Adverse Reaction, Mild, gi upset, 12/17/15) Uncoded Allergies: fiberglass (Allergy, Intermediate, Resp difficulty, rash and swelling. , 08/25/16) Family History: Family History: Reviewed with no pertinent findings Social History: Social History: Smoking Status: Former Smoker Alcohol Use: None Drug Use: Marijuana Current Medications: Current Medications Current Medications Metoclopramide HCl (Reglan) 10 mg 1X ONCE PO Last administered on 02/28/21at 15:45; Start 02/28/21 at 15:15; Stop 02/28/21 at 15:16; Status DC Diphenhydramine HCl (Benadryl) 25 mg 1X ONCE IVP Last administered on 02/28/21at 15:43; Start 02/28/21 at 15:15; Stop 02/28/21 at 15:16; Status DC Sodium Chloride 1,000 ml @ 1,000 mls/hr Q1H ONCE IV Last administered on 02/28/21at 15:42; Start 02/28/21 at 15:15; Stop 02/28/21 at 16:14; Status DC Iohexol (Omnipaque 350 Mg/ml) 75 ml 1X ONCE IV Last administered on 02/28/21at 15:45; Start 02/28/21 at 15:45; Stop 02/28/21 at 15:46; Status DC Info (CONTRAST GIVEN -- Rx MONITORING) 1 each PRN DAILY PRN MC SEE COMMENTS; Start 02/28/21 at 15:45; Stop 03/02/21 at 15:44 Metoclopramide HCl (Reglan) 10 mg 1X ONCE PO ; Start 02/28/21 at 18:30; Stop 02/28/21 at 18:31; Status Cancel Diphenhydramine HCl (Benadryl) 25 mg 1X ONCE IVP Last administered on 02/28/21at 20:04; Start 02/28/21 at 18:30; Stop 02/28/21 at 18:31; Status DC Sodium Chloride 1,000 ml @ 1,000 mls/hr Q1H ONCE IV ; Start 02/28/21 at 18:30; Stop 02/28/21 at 19:29; Status DC Sodium Chloride 1,000 ml @ 75 mls/hr [id number] IV Last administered on 02/28/21at 20:06; Start 02/28/21 at 19:30 Metoclopramide HCl (Reglan Vial) 10 mg 1X ONCE IVP Last administered on 02/28/21at 20:05; Start 02/28/21 at 20:00; Stop 02/28/21 at 20:01; Status DC Active Scripts Active Meloxicam 7.5 Mg Tablet 7.5 Mg PO DAILY Acyclovir 800 Mg Tablet 1 Tab PO 5XDAY Zithromax (Azithromycin) 250 Mg Tablet 1 Pkg PO UD Proair Hfa Inhaler (Albuterol Sulfate) 8.5 Gm Hfa.aer.ad 1 Puff INH Q4HRS PRN Bactroban Cream (Mupirocin) 15 Gm Cream..g. 1 Hernandez TP TID Hydroxyzine Hcl 25 Mg Tablet 25 Mg PO TID PRN Prednisone 20 Mg Tablet 1 Tab PO BID Reported Furosemide 20 Mg Tablet 1 Tab PO DAILY Pantoprazole Sodium 40 Mg Tablet.dr 1 Tab PO BID Tacrolimus 30 Gm Oint...g. 30 Gm TP BID Amlodipine Besylate 2.5 Mg Tablet 1 Tab PO DAILY Escitalopram Oxalate 10 Mg Tablet 1 Tab PO DAILY Baclofen 20 Mg Tablet 1 Tab PO TID Trazodone Hcl 100 Mg Tablet 1 Tab PO QHS Buspirone Hcl 10 Mg Tablet 1 Tab PO TID PRN Methotrexate 50 Mg/2 Ml Vial (Methotrexate Sodium/Pf) 25 Mg/1 Ml Vial 0.6 Ml WEEKLY Xeljanz Xr (Tofacitinib Citrate) 11 Mg Tab.er.24h 1 Tab PO DAILY Potassium Citrate 10 Meq Tablet.er 1 Tab PO DAILY Desmopressin Acetate 0.2 Mg Tablet 1 Tab PO QHS ROS: Review of Systems Review of System REVIEW OF SYSTEMS: GENERAL: Denies weakness SKIN: No bruising, hair changes or rashes. EYES: No blurred, double or loss of vision. NOSE AND THROAT: No history of nosebleeds, hoarseness or sore throat. HEART: No history of palpitations, chest pain or shortness of breath on exertion. LUNGS: Denies cough, hemoptysis, wheezing or shortness of breath. GASTROINTESTINAL: Denies changes in appetite, nausea, vomiting, diarrhea or constipation. GENITOURINARY: No history of frequency, urgency, hesitancy or nocturia. NEUROLOGIC: Denies history of numbness, tingling, or tremor. PSYCHIATRIC: No history of panic, anxiety or depression. ENDOCRINE: No history of heat or cold intolerance, polyuria or polydipsia. EXTREMITIES: Denies joint pain, pain on walking or stiffness. Physical Exam: Vital Signs: Vital Signs Date Time Temp Pulse Resp B/P (MAP) Pulse Ox O2 Delivery O2 Flow Rate FiO2 03/01/21 03:00 97.4 60 20 125/58 (80) 92 Room Air 97.4 Physcial Exam: GEN: No apparent distress. Alert and oriented HEENT: Normal cephalic, atraumatic, external auditory canals are patent EYES: Extraocular muscles are intact, pupil are equally round and reactive to light and accommodation MUSCULOSKELETAL: Well developed , well nourished, good range of motion ENDOCRINE: No thyromegaly was palpated LYMPHATICS: No cervical chain or axillary nodes were noted HEMATOPOIETIC: No bruising NECK: Supple, no JVD, no thyromegaly was noted LUNGS: Clear to auscultation in all lung [place] without rhonchi or wheezing HEART: RRR, S!, S2 present. Peripheral pulses intact, no obvious murmurs noted ABDOMEN: Soft, nontender. Positive bowel sounds, no organomegaly, normal bowel sounds EXTREMITIES: Without clubbing, cyanosis, or edema. Pedal pulses intact. Negative Homans sign NEUROLOGIC: Normal speech and tone. A&O x 3, moves all extremities, no obvious focal deficits PSYCHIATRIC: Normal affect, normal mood. Stable SKIN: No ulcerations or rashes, good skin turgor, no jaundice VASCULAR: Good capillary refill, neurovascular bundle appears to be intact Labs: Labs: Laboratory Tests Test 02/28/21 14:43 03/01/21 07:10 White Blood Count 3.6 x10^3/uL (4.0-11.0) 3.7 x10^3/uL (4.0-11.0) Red Blood Count 3.62 x10^6/uL (3.50-5.40) 3.42 x10^6/uL (3.50-5.40) Hemoglobin 13.2 g/dL (12.0-15.5) 12.4 g/dL (12.0-15.5) Hematocrit 38.5 % (36.0-47.0) 36.9 % (36.0-47.0) Mean Corpuscular Volume 106 fL (79-100) 108 fL (79-100) Mean Corpuscular Hemoglobin 36 pg (25-35) 36 pg (25-35) Mean Corpuscular Hemoglobin Concent 34 g/dL (31-37) 34 g/dL (31-37) Red Cell Distribution Width 14.0 % (11.5-14.5) 14.1 % (11.5-14.5) Platelet Count 254 x10^3/uL (140-400) 232 x10^3/uL (140-400) Neutrophils (%) (Auto) 52 % (31-73) 65 % (31-73) Lymphocytes (%) (Auto) 33 % (24-48) 19 % (24-48) Monocytes (%) (Auto) 13 % (0-9) 15 % (0-9) Eosinophils (%) (Auto) 1 % (0-3) 1 % (0-3) Basophils (%) (Auto) 1 % (0-3) 1 % (0-3) Neutrophils # (Auto) 1.9 x10^3/uL (1.8-7.7) 2.4 x10^3/uL (1.8-7.7) Lymphocytes # (Auto) 1.2 x10^3/uL (1.0-4.8) 0.7 x10^3/uL (1.0-4.8) Monocytes # (Auto) 0.5 x10^3/uL (0.0-1.1) 0.6 x10^3/uL (0.0-1.1) Eosinophils # (Auto) 0.0 x10^3/uL (0.0-0.7) 0.0 x10^3/uL (0.0-0.7) Basophils # (Auto) 0.0 x10^3/uL (0.0-0.2) 0.0 x10^3/uL (0.0-0.2) Sodium Level 143 mmol/L (136-145) 148 mmol/L (136-145) Potassium Level 3.9 mmol/L (3.5-5.1) 4.0 mmol/L (3.5-5.1) Chloride Level 105 mmol/L (98-107) 112 mmol/L (98-107) Carbon Dioxide Level 26 mmol/L (21-32) 25 mmol/L (21-32) Anion Gap 12 (6-14) 11 (6-14) Blood Urea Nitrogen 17 mg/dL (7-20) 9 mg/dL (7-20) Creatinine 0.8 mg/dL (0.6-1.0) 0.6 mg/dL (0.6-1.0) Estimated GFR (Cockcroft-Gault) 73.2 102.0 BUN/Creatinine Ratio 21 (6-20) Glucose Level 101 mg/dL (70-99) 90 mg/dL (70-99) Calcium Level 8.7 mg/dL (8.5-10.1) 8.5 mg/dL (8.5-10.1) Total Bilirubin 0.3 mg/dL (0.2-1.0) Aspartate Amino Transf (AST/SGOT) 22 U/L (15-37) Alanine Aminotransferase (ALT/SGPT) 45 U/L (14-59) Alkaline Phosphatase 53 U/L (46-116) Total Protein 7.4 g/dL (6.4-8.2) Albumin 4.6 g/dL (3.4-5.0) Albumin/Globulin Ratio 1.6 (1.0-1.7) Laboratory Tests Test 02/28/21 14:43 03/01/21 07:10 White Blood Count 3.6 x10^3/uL (4.0-11.0) 3.7 x10^3/uL (4.0-11.0) Red Blood Count 3.62 x10^6/uL (3.50-5.40) 3.42 x10^6/uL (3.50-5.40) Hemoglobin 13.2 g/dL (12.0-15.5) 12.4 g/dL (12.0-15.5) Hematocrit 38.5 % (36.0-47.0) 36.9 % (36.0-47.0) Mean Corpuscular Volume 106 fL (79-100) 108 fL (79-100) Mean Corpuscular Hemoglobin 36 pg (25-35) 36 pg (25-35) Mean Corpuscular Hemoglobin Concent 34 g/dL (31-37) 34 g/dL (31-37) Red Cell Distribution Width 14.0 % (11.5-14.5) 14.1 % (11.5-14.5) Platelet Count 254 x10^3/uL (140-400) 232 x10^3/uL (140-400) Neutrophils (%) (Auto) 52 % (31-73) 65 % (31-73) Lymphocytes (%) (Auto) 33 % (24-48) 19 % (24-48) Monocytes (%) (Auto) 13 % (0-9) 15 % (0-9) Eosinophils (%) (Auto) 1 % (0-3) 1 % (0-3) Basophils (%) (Auto) 1 % (0-3) 1 % (0-3) Neutrophils # (Auto) 1.9 x10^3/uL (1.8-7.7) 2.4 x10^3/uL (1.8-7.7) Lymphocytes # (Auto) 1.2 x10^3/uL (1.0-4.8) 0.7 x10^3/uL (1.0-4.8) Monocytes # (Auto) 0.5 x10^3/uL (0.0-1.1) 0.6 x10^3/uL (0.0-1.1) Eosinophils # (Auto) 0.0 x10^3/uL (0.0-0.7) 0.0 x10^3/uL (0.0-0.7) Basophils # (Auto) 0.0 x10^3/uL (0.0-0.2) 0.0 x10^3/uL (0.0-0.2) Sodium Level 143 mmol/L (136-145) 148 mmol/L (136-145) Potassium Level 3.9 mmol/L (3.5-5.1) 4.0 mmol/L (3.5-5.1) Chloride Level 105 mmol/L (98-107) 112 mmol/L (98-107) Carbon Dioxide Level 26 mmol/L (21-32) 25 mmol/L (21-32) Anion Gap 12 (6-14) 11 (6-14) Blood Urea Nitrogen 17 mg/dL (7-20) 9 mg/dL (7-20) Creatinine 0.8 mg/dL (0.6-1.0) 0.6 mg/dL (0.6-1.0) Estimated GFR (Cockcroft-Gault) 73.2 102.0 BUN/Creatinine Ratio 21 (6-20) Glucose Level 101 mg/dL (70-99) 90 mg/dL (70-99) Calcium Level 8.7 mg/dL (8.5-10.1) 8.5 mg/dL (8.5-10.1) Total Bilirubin 0.3 mg/dL (0.2-1.0) Aspartate Amino Transf (AST/SGOT) 22 U/L (15-37) Alanine Aminotransferase (ALT/SGPT) 45 U/L (14-59) Alkaline Phosphatase 53 U/L (46-116) Total Protein 7.4 g/dL (6.4-8.2) Albumin 4.6 g/dL (3.4-5.0) Albumin/Globulin Ratio 1.6 (1.0-1.7) Images: Images CT HEAD IMPRESSION: No definitive evidence of acute intracranial abnormality. Asymmetric changes in the left supratentorial white matter as described, possibly related to history of cerebral palsy but could also represent a subacute infarct. MRI could be obtained for further evaluation as indicated. CTA HEAD/NECK IMPRESSION: 1. Patent intracranial cervical arterial vasculature without evidence of stenosis, occlusion or aneurysm. 2. Incidental note of right aortic arch. Assessment/Plan Assessment/Plan Acute intractable headache, likely primary Left supratentorial white matter changes, possible subacute infarct Macrocytosis Hyponatremia, hyperchloremia due to dehydration History of cerebral palsy History of rheumatoid arthritis History of osteoarthritis History of lupus Admit to medicine for observation Neuro consult Pending MRI of the brain Resume home medications PT OT modalities Recommended Tylenol for headache if patient does not have any reflux symptoms. Will consider gabapentin as a possibility SCD for DVT prophylaxis Protonix GI prophylaxis ADA diet Full code Discussed with RN and SW Disposition pending neuro evaluation Surrogate decision maker is daughter Justifications for Admission Other Justification LILLY ANNA MD March 01, 2021 08:39
[2021-03-01] MEDS ORDERED: DOCUSATE SODIUM 100 MG CAPSULE. PO PRN (08:45)
[2021-03-01] MEDS ORDERED: IV NORMAL SALINE 1000ML BAG 1,000 ML IV SCH (08:45)
[2021-03-01] MEDS ORDERED: DEXTROSE 50% 25 GM / 50ML DISP.SYRIN. IV PRN (08:45)
[2021-03-01] MEDS ORDERED: SENNOSIDES 8.6 MG TABLET PO PRN (08:45)
[2021-03-01] MEDS ORDERED: ONDANSETRON PF 4 MG/2 ML VIAL. IVP PRN (08:45)
[2021-03-01] MEDS ORDERED: ACETAMINOPHEN 325 MG TABLET. PO PRN (08:45)
[2021-03-01] MEDS: IV NORMAL SALINE 1000ML BAG 1,000 ML IV SCH (08:50)
[2021-03-01] MEDS ORDERED: busPIRone 10 MG TABLET. PO PRN (09:15)
[2021-03-01] MEDS ORDERED: hydrOXYzine 25 MG TABLET PO PRN (09:15)
[2021-03-01] MEDS ORDERED: FUROSEMIDE 20 MG TABLET PO SCH (10:00)
[2021-03-01] MEDS ORDERED: MELOXICAM 7.5 MG TABLET PO SCH (10:00)
[2021-03-01] MEDS ORDERED: CITALOPRAM 20 MG TABLET. PO SCH (10:00)
[2021-03-01] MEDS ORDERED: POTASSIUM CITRATE 10 MEQ TABLET.ER PO SCH (10:00)
[2021-03-01] MEDS ORDERED: amLODIPine BESYLATE 5 MG TABLET PO SCH (10:00)
--- NOTE | 2021-03-01 10:25 | NUR ---
SW following. Discussed with RN, pt from home with spouse, room air, NPO. Wound care consulted. Neurology following. RN advised no SW needs at this time, anticipates discharge home today. SW will continue to follow.
[2021-03-01 11:00] VITALS: BP 123/75
[2021-03-01] MEDS: GABAPENTIN 100 MG CAPSULE. PO SCH ×2 (11:00→16:00)
[2021-03-01] MEDS: PANTOPRAZOLE 40 MG TABLET.DR. PO SCH ×2 (11:42→16:30)
[2021-03-01] MEDS: BACLOFEN 10 MG TABLET. PO SCH ×2 (11:42→14:00)
[2021-03-01] MEDS ORDERED: CALCIUM CARBONATE 500 MG TAB.CHEW PO PRN (13:30)
--- NOTE | 2021-03-01 14:27 | PDOC2 ---
NEUROLOGY CONSULT Date of Service DOS: DATE: 03/01/21 TIME: 14:18 Reason for Consult Reason for Consult: Headache, possible subacute stroke Referring Physician Referring Physician: Dr. Cerrato Source Source: Chart review, Patient History of Present Illness History of Present Illness The patient is a 60-year-old right-handed female with history of cerebral palsy, unable to walk for the past 3 years, wheelchair-bound. She has been having home health visits for physical therapy, she is hoping to walk again. Her blood pressure has been about 140/100 for the past 2 weeks, then yesterday it was 170/100. Patient called EMS who brought her to the hospital because they found her blood pressure was even higher, 190/110. She has had severe bifrontal headache since yesterday. Headache is better today, still 7/10. She is chronically on oxycodone for pain in her back and legs. 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 There is no history of stroke, seizure, or head injury. Past Medical History CENTRAL NERVOUS SYSTEM: Other (Diplegic cerebral palsy, chronic pain) GI: Other (Finn's esophagus) Musculoskeletal: Osteoarthritis Rheumatologic: Rheumatoid arthritis, Other (Lupus) Past Surgical History Past Surgical History: Cholecystectomy, Tubal Ligation (And reversal), Other (Tendon lengthenings) Family History Family History: Cancer Social History Social History , occasional marijuana, no alcohol or tobacco, disabled Current Medications Current Medications Current Medications Metoclopramide HCl (Reglan) 10 mg 1X ONCE PO Last administered on 02/28/21at 15:45; Start 02/28/21 at 15:15; Stop 02/28/21 at 15:16; Status DC Diphenhydramine HCl (Benadryl) 25 mg 1X ONCE IVP Last administered on 02/28/21at 15:43; Start 02/28/21 at 15:15; Stop 02/28/21 at 15:16; Status DC Sodium Chloride 1,000 ml @ 1,000 mls/hr Q1H ONCE IV Last administered on 02/28/21at 15:42; Start 02/28/21 at 15:15; Stop 02/28/21 at 16:14; Status DC Iohexol (Omnipaque 350 Mg/ml) 75 ml 1X ONCE IV Last administered on 02/28/21at 15:45; Start 02/28/21 at 15:45; Stop 02/28/21 at 15:46; Status DC Info (CONTRAST GIVEN -- Rx MONITORING) 1 each PRN DAILY PRN MC SEE COMMENTS; Start 02/28/21 at 15:45; Stop 03/02/21 at 15:44 Metoclopramide HCl (Reglan) 10 mg 1X ONCE PO ; Start 02/28/21 at 18:30; Stop 02/28/21 at 18:31; Status Cancel Diphenhydramine HCl (Benadryl) 25 mg 1X ONCE IVP Last administered on 02/28/21at 20:04; Start 02/28/21 at 18:30; Stop 02/28/21 at 18:31; Status DC Sodium Chloride 1,000 ml @ 1,000 mls/hr Q1H ONCE IV ; Start 02/28/21 at 18:30; Stop 02/28/21 at 19:29; Status DC Sodium Chloride 1,000 ml @ 75 mls/hr [id number] IV Last administered on 02/28/21at 20:06; Start 02/28/21 at 19:30 Metoclopramide HCl (Reglan Vial) 10 mg 1X ONCE IVP Last administered on 02/28/21at 20:05; Start 02/28/21 at 20:00; Stop 02/28/21 at 20:01; Status DC Sennosides (Senna) 17.2 mg PRN BID PRN PO CONSTIPATION; Start 03/01/21 at 08:45 Docusate Sodium (Colace) 100 mg PRN DAILY PRN PO HARD STOOLS; Start 03/01/21 at 08:45 Ondansetron HCl (Zofran) 4 mg PRN Q6HRS PRN IVP NAUSEA/VOMITING; Start 03/01/21 at 08:45 Dextrose (Dextrose 50%-Water Syringe) 12.5 gm PRN Q15MIN PRN IV SEE COMMENTS; Start 03/01/21 at 08:45 Sodium Chloride 1,000 ml @ 100 mls/hr Q10H IV ; Start 03/01/21 at 08:45 Acetaminophen (Tylenol) 650 mg PRN Q4HRS PRN PO TEMP OVER 100.4F OR MILD PAIN Last administered on 03/01/21at 14:01; Start 03/01/21 at 08:45 Buspirone HCl (Buspar) 10 mg PRN TID PRN PO anxiety; Start 03/01/21 at 09:15 Furosemide (Lasix) 20 mg DAILY PO ; Start 03/01/21 at 10:00 Hydroxyzine HCl (Atarax) 25 mg PRN TID PRN PO ITCHING; Start 03/01/21 at 09:15 Meloxicam (Mobic) 7.5 mg DAILY PO ; Start 03/01/21 at 10:00 Pantoprazole Sodium (Protonix) 40 mg BIDAC PO Last administered on 03/01/21at 11:42; Start 03/01/21 at 09:30 Potassium Citrate (Urocit-K) 10 meq DAILY PO ; Start 03/01/21 at 10:00 Trazodone HCl (Desyrel) 100 mg QHS PO ; Start 03/01/21 at 21:00 Amlodipine Besylate (Norvasc) 2.5 mg DAILY PO Last administered on 03/01/21at 11:43; Start 03/01/21 at 10:00 Baclofen (Lioresal) 20 mg TID PO Last administered on 03/01/21at 11:42; Start 03/01/21 at 10:00 Desmopressin Acetate (Ddavp) 0.1 mg QHS PO ; Start 03/01/21 at 21:00 Citalopram Hydrobromide (CeleXA) 20 mg DAILY PO ; Start 03/01/21 at 10:00 Non-Formulary Medication (Tofacitinib Citrate (Xeljanz Xr)) 1 tab DAILY PO ; Start 03/02/21 at 09:00; Status UNV Gabapentin (Neurontin) 100 mg TID PO ; Start 03/01/21 at 11:00 Calcium Carbonate/ Glycine (Tums) 500 mg PRN AFTMEALHC PRN PO INDIGESTION Last administered on 03/01/21at 14:01; Start 03/01/21 at 13:30 Active Scripts Active Acyclovir 800 Mg Tablet 1 Tab PO 5XDAY Zithromax (Azithromycin) 250 Mg Tablet 1 Pkg PO UD Proair Hfa Inhaler (Albuterol Sulfate) 8.5 Gm Hfa.aer.ad 1 Puff INH Q4HRS PRN Bactroban Cream (Mupirocin) 15 Gm Cream..g. 1 Hernandez TP TID Reported Furosemide 20 Mg Tablet 1 Tab PO DAILY Pantoprazole Sodium 40 Mg Tablet.dr 1 Tab PO BID Tacrolimus 30 Gm Oint...g. 30 Gm TP BID Amlodipine Besylate 2.5 Mg Tablet 1 Tab PO DAILY Escitalopram Oxalate 10 Mg Tablet 1 Tab PO DAILY Baclofen 20 Mg Tablet 1 Tab PO TID Trazodone Hcl 100 Mg Tablet 1 Tab PO QHS Buspirone Hcl 10 Mg Tablet 1 Tab PO TID PRN Methotrexate 50 Mg/2 Ml Vial (Methotrexate Sodium/Pf) 25 Mg/1 Ml Vial 0.6 Ml WEEKLY Xeljanz Xr (Tofacitinib Citrate) 11 Mg Tab.er.24h 1 Tab PO DAILY Potassium Citrate 10 Meq Tablet.er 1 Tab PO DAILY Desmopressin Acetate 0.2 Mg Tablet 1 Tab PO QHS Allergies Allergies: Coded Allergies: tramadol (Verified Adverse Reaction, Mild, gi upset, 12/17/15) Uncoded Allergies: fiberglass (Allergy, Intermediate, Resp difficulty, rash and swelling. , 08/25/16) ROS Review of System Negative for fever, chills, weight loss, shortness of breath, chest pain, indigestion, hematochezia, melena, and dysuria. Full 14-point review of systems is negative. Physical Exam Physical Examination General: Well-developed, well-nourished white female in no acute distress HEENT: Normocephalic andatraumatic. Temporal arteriespulsatile and nontender. Neck: Supple without bruit, no meningismus Musculoskeletal: Stability:see neurologic. Gait exam:see neurologic. Tone:see neurologic.Strength:see neurologic. Neurological: Mental Status:intact, orientation, memory, attention span/concentration, language, fund of knowledge normal. Cranial Nerves:Pupils equal and reactive to light, extraocular movements areintact, visual medina are full to confrontat ion. Facial sensation is normal. There is no facial asymmetry. Vestibulo-ocular reflex is intact. Palate elevates and tongue protrudes in midline. All other cranial related problems are negative except as mentioned before.Reflexes:2+ and symmetric with flexor plantar responses. Motor:5/5 arms, 2/5 legs, worse in the right leg, with increased tone in both legs. Coordination:Finger-nose finger is normal. Rapid alternating movements and fine finger movements are intact. Gait:not tested. Sensory:Normal pinprick, vibration, light touch, proprioception. Vitals VITALS Vital Signs Date Time Temp Pulse Resp B/P (MAP) Pulse Ox O2 Delivery O2 Flow Rate FiO2 03/01/21 11:43 70 123/75 03/01/21 11:00 98.0 17 96 Room Air 98.0 Labs Labs Laboratory Tests Test 02/28/21 14:43 03/01/21 07:10 White Blood Count 3.6 x10^3/uL (4.0-11.0) 3.7 x10^3/uL (4.0-11.0) Red Blood Count 3.62 x10^6/uL (3.50-5.40) 3.42 x10^6/uL (3.50-5.40) Hemoglobin 13.2 g/dL (12.0-15.5) 12.4 g/dL (12.0-15.5) Hematocrit 38.5 % (36.0-47.0) 36.9 % (36.0-47.0) Mean Corpuscular Volume 106 fL (79-100) 108 fL (79-100) Mean Corpuscular Hemoglobin 36 pg (25-35) 36 pg (25-35) Mean Corpuscular Hemoglobin Concent 34 g/dL (31-37) 34 g/dL (31-37) Red Cell Distribution Width 14.0 % (11.5-14.5) 14.1 % (11.5-14.5) Platelet Count 254 x10^3/uL (140-400) 232 x10^3/uL (140-400) Neutrophils (%) (Auto) 52 % (31-73) 65 % (31-73) Lymphocytes (%) (Auto) 33 % (24-48) 19 % (24-48) Monocytes (%) (Auto) 13 % (0-9) 15 % (0-9) Eosinophils (%) (Auto) 1 % (0-3) 1 % (0-3) Basophils (%) (Auto) 1 % (0-3) 1 % (0-3) Neutrophils # (Auto) 1.9 x10^3/uL (1.8-7.7) 2.4 x10^3/uL (1.8-7.7) Lymphocytes # (Auto) 1.2 x10^3/uL (1.0-4.8) 0.7 x10^3/uL (1.0-4.8) Monocytes # (Auto) 0.5 x10^3/uL (0.0-1.1) 0.6 x10^3/uL (0.0-1.1) Eosinophils # (Auto) 0.0 x10^3/uL (0.0-0.7) 0.0 x10^3/uL (0.0-0.7) Basophils # (Auto) 0.0 x10^3/uL (0.0-0.2) 0.0 x10^3/uL (0.0-0.2) Sodium Level 143 mmol/L (136-145) 148 mmol/L (136-145) Potassium Level 3.9 mmol/L (3.5-5.1) 4.0 mmol/L (3.5-5.1) Chloride Level 105 mmol/L (98-107) 112 mmol/L (98-107) Carbon Dioxide Level 26 mmol/L (21-32) 25 mmol/L (21-32) Anion Gap 12 (6-14) 11 (6-14) Blood Urea Nitrogen 17 mg/dL (7-20) 9 mg/dL (7-20) Creatinine 0.8 mg/dL (0.6-1.0) 0.6 mg/dL (0.6-1.0) Estimated GFR (Cockcroft-Gault) 73.2 102.0 BUN/Creatinine Ratio 21 (6-20) Glucose Level 101 mg/dL (70-99) 90 mg/dL (70-99) Calcium Level 8.7 mg/dL (8.5-10.1) 8.5 mg/dL (8.5-10.1) Total Bilirubin 0.3 mg/dL (0.2-1.0) Aspartate Amino Transf (AST/SGOT) 22 U/L (15-37) Alanine Aminotransferase (ALT/SGPT) 45 U/L (14-59) Alkaline Phosphatase 53 U/L (46-116) Total Protein 7.4 g/dL (6.4-8.2) Albumin 4.6 g/dL (3.4-5.0) Albumin/Globulin Ratio 1.6 (1.0-1.7) Laboratory Tests Test 02/28/21 14:43 03/01/21 07:10 White Blood Count 3.6 x10^3/uL (4.0-11.0) 3.7 x10^3/uL (4.0-11.0) Red Blood Count 3.62 x10^6/uL (3.50-5.40) 3.42 x10^6/uL (3.50-5.40) Hemoglobin 13.2 g/dL (12.0-15.5) 12.4 g/dL (12.0-15.5) Hematocrit 38.5 % (36.0-47.0) 36.9 % (36.0-47.0) Mean Corpuscular Volume 106 fL (79-100) 108 fL (79-100) Mean Corpuscular Hemoglobin 36 pg (25-35) 36 pg (25-35) Mean Corpuscular Hemoglobin Concent 34 g/dL (31-37) 34 g/dL (31-37) Red Cell Distribution Width 14.0 % (11.5-14.5) 14.1 % (11.5-14.5) Platelet Count 254 x10^3/uL (140-400) 232 x10^3/uL (140-400) Neutrophils (%) (Auto) 52 % (31-73) 65 % (31-73) Lymphocytes (%) (Auto) 33 % (24-48) 19 % (24-48) Monocytes (%) (Auto) 13 % (0-9) 15 % (0-9) Eosinophils (%) (Auto) 1 % (0-3) 1 % (0-3) Basophils (%) (Auto) 1 % (0-3) 1 % (0-3) Neutrophils # (Auto) 1.9 x10^3/uL (1.8-7.7) 2.4 x10^3/uL (1.8-7.7) Lymphocytes # (Auto) 1.2 x10^3/uL (1.0-4.8) 0.7 x10^3/uL (1.0-4.8) Monocytes # (Auto) 0.5 x10^3/uL (0.0-1.1) 0.6 x10^3/uL (0.0-1.1) Eosinophils # (Auto) 0.0 x10^3/uL (0.0-0.7) 0.0 x10^3/uL (0.0-0.7) Basophils # (Auto) 0.0 x10^3/uL (0.0-0.2) 0.0 x10^3/uL (0.0-0.2) Sodium Level 143 mmol/L (136-145) 148 mmol/L (136-145) Potassium Level 3.9 mmol/L (3.5-5.1) 4.0 mmol/L (3.5-5.1) Chloride Level 105 mmol/L (98-107) 112 mmol/L (98-107) Carbon Dioxide Level 26 mmol/L (21-32) 25 mmol/L (21-32) Anion Gap 12 (6-14) 11 (6-14) Blood Urea Nitrogen 17 mg/dL (7-20) 9 mg/dL (7-20) Creatinine 0.8 mg/dL (0.6-1.0) 0.6 mg/dL (0.6-1.0) Estimated GFR (Cockcroft-Gault) 73.2 102.0 BUN/Creatinine Ratio 21 (6-20) Glucose Level 101 mg/dL (70-99) 90 mg/dL (70-99) Calcium Level 8.7 mg/dL (8.5-10.1) 8.5 mg/dL (8.5-10.1) Total Bilirubin 0.3 mg/dL (0.2-1.0) Aspartate Amino Transf (AST/SGOT) 22 U/L (15-37) Alanine Aminotransferase (ALT/SGPT) 45 U/L (14-59) Alkaline Phosphatase 53 U/L (46-116) Total Protein 7.4 g/dL (6.4-8.2) Albumin 4.6 g/dL (3.4-5.0) Albumin/Globulin Ratio 1.6 (1.0-1.7) Images Images CTA NECK: There is a right aortic arch. Three-vessel aortic arch configuration noted. Right common carotid artery is patent without evidence of stenosis, occlusion or aneurysm. Cervical segment of the right internal carotid artery is patent without evidence of stenosis, occlusion or aneurysm. Left common carotid artery is patent without evidence of stenosis, occlusion or aneurysm. Cervical segment of the left internal carotid artery is patent without evidence of stenosis, occlusion or aneurysm. Right vertebral artery is patent to the basilar confluence without evidence of stenosis, occlusion or aneurysm. Left vertebral artery is patent to the basilar confluence without evidence of stenosis, occlusion or aneurysm. Visualized soft tissues are unremarkable. CTA HEAD: Intracranial segments of the right internal carotid artery are patent without evidence of stenosis, occlusion or aneurysm. Right MCA is patent. Right JOSE is patent. Intracranial segments of the left internal carotid artery is patent without evidence of stenosis, occlusion or aneurysm. Left MCA is patent. Left JOSE is patent. Basilar artery is patent without evidence of stenosis, occlusion or aneurysm. 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 IMPRESSION: 1. Patent intracranial cervical arterial vasculature without evidence of stenosis, occlusion or aneurysm. 2. Incidental note of right aortic arch. CT HEAD WO CONTRAST Acute Change: No definitive evidence of an acute infarct or other acute parenchymal process. Hemorrhage: No evidence of acute intracranial hemorrhage. Mass Lesion/Mass Effect: No evidence of intracranial mass or extraaxial fluid collection. No significant mass effect. Chronic Change: Asymmetrically prominent moderate hypoattenuation in the deep and subcortical white matter in the left cerebral hemisphere. Germain/white matter differentiation relatively well-maintained. No associated significant gyral edema. Findings are nonspecific but could be related to a subacute infarct. Parenchyma: No significant volume loss. Parenchyma otherwise within normal limits for age. Ventricles: Ventricles within normal limits for age. Paranasal Sinuses and Skull Base: Visualized paranasal sinuses clear. Visualized skull base and soft tissues unremarkable. IMPRESSION: No definitive evidence of acute intracranial abnormality. Asymmetric changes in the left supratentorial white matter as described, possibly related to history of cerebral palsy but could also represent a subacute infarct. MRI could be obtained for further evaluation as indicated. 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 LYN GARCIA MD March 01, 2021 14:27
[2021-03-01] MEDS ORDERED: oxyCODONE IR 5 MG TABLET PO PRN (14:30)
[2021-03-01 15:00] VITALS: BP 124/70
--- NOTE | 2021-03-01 16:19 | NUR ---
Wound Care Wound Type/Assessment: Consult to eval and treat coccyx wound present on admission. Pictures present on hard chart. Wound to midline coccyx with slough in the base, and irregular reddened margins. Several satellite intact, red blisters noted superior to wound in the gluteal cleft, inconsistent with a pressure injury in appearance and location. No other open areas noted on head to toe assessment. Treatment Recommendations/Plan: Coccyx: Apply nystatin cream mixed with barrier cream BID. May apply additional barrier cream throughout the day as needed. Education provided: Educated to turn side to side so that the wound can heal Offloading surface/device: Hospital bed, pillows for comfort and positioning. WC cushion for sitting. Pt is independent with mobility Recommended Referrals/Tests: NA Discharge Recommendations for dressings: As above
[2021-03-01] MEDS ORDERED: FUROSEMIDE 20 MG TABLET PO PRN (17:15)
--- NOTE | 2021-03-01 17:40 | RAD ---
EXAM: MRI BRAIN WITHOUT CONTRAST. HISTORY: Headache, cerebral palsy, white matter lesion on CT. TECHNIQUE: Magnetic resonance images of the brain were obtained without intravenous contrast. COMPARISON: 02/28/2021. FINDINGS: There is no diffusion restriction. There is moderate T2 hyperintensity throughout the periventricular white matter. There is periventricular white matter volume loss. There is a single small focus of wh ite matter hyperintensity in the left cerebellar hemisphere. The ventricles are normal in size and po sition. The paranasal sinuses are clear. The orbits are unremarkable. The temporal bones are unremarkable. Th e calvarium demonstrates no suspicious lesions. IMPRESSION: 1. Moderate periventricular white matter T2 hyperintensity and volume loss is likely congenital given the history of cerebral palsy. There may also be a component of chronic microangiopathic change in t his demographic. Electronically signed by: Dash Han MD (03/01/2021 5:37 PM) [facility]
--- NOTE | 2021-03-01 19:19 | NUR ---
Pt discharged home with self care. Discharge instructions discussed. Pt verbalized understanding. IV removed. Pt in wheelchair. Taken to ed entrance and secured in car with .
[2021-03-01] MEDS ORDERED: NYSTATIN 100,000 UNIT/GM TOPICAL OINTMENT 15GM TUBE. TP SCH (21:00)
[2021-03-01] MEDS ORDERED: traZODone 100 MG TABLET. PO SCH (21:00)
[2021-03-01] MEDS ORDERED: DESMOPRESSIN 0.1 MG TABLET. PO SCH (21:00)
[2021-03-02] MEDS ORDERED: TOFACITINIB CITRATE PO SCH (09:00)
--- NOTE | 2021-03-04 21:57 | PDOC3 ---
[facility]-Discharge Summary Date of Admission: Date of Admission: March 01, 2021 Date of Discharge: Date of Discharge: March 01, 2021 Discharge Diagnosis: Discharge Diagnosis: Acute intractable headache, likely primary Left supratentorial white matter changes, possible subacute infarct Macrocytosis Hyponatremia, hyperchloremia due to dehydration History of cerebral palsy History of rheumatoid arthritis History of osteoarthritis History of lupus Consults: Consults: Neuro recs: MRI of the brain I considered Fioricet for her headache, she does not like Tylenol, she can just use the oxycodone she already takes for her chronic pain Home if MRI brain negative Follow-up with her physicians at [facility] Hospital Course: Hospital Course: 60-year-old female presenting with a headache. She describes her headache started this morning. It reached 10 out of 10 severity but took more than an hour to reach maximal intensity. Her headache is currently improving and is now about 6 out of 10. She has a history of headaches but this is a different type of headache she describes. She describes the headache static her head is going to explode and there is pressure between her temples. She denies any new focal neurologic deficits or any new neurologic changes as she has a baseline weakness in her legs from cerebral palsy. Of note, patient does use a wheelchair and she transfers between bed and wheelchair. Review of systems: Negative for chest pain vomiting fevers chills. Negative for abdominal pain vomiting diaphoresis fevers chills or nuchal rigidity. She denies any vision changes. All other review of systems negative By day of discharge, pt was clinically stable and ready for discharge. MRI showed chronic changes from her CP. Rest of hospital course was uneventful Disposition: Disposition/Orders: D/C to Home Activity: Activity: Resume previous activity Diet: Diet: Regular Medications: Home Meds Active Scripts Acyclovir (ACYCLOVIR) 800 Mg Tablet, 1 TAB PO 5XDAY, #50 TAB Prov:JOHNNY PACHECO [employer]INDING [employer]EL INSPECTOR 11/23/17 Azithromycin (ZITHROMAX) 250 Mg Tablet, 1 PKG PO UD, #6 TAB Prov:BOBBI CORTEZ DO 09/20/17 Albuterol Sulfate (PROAIR HFA INHALER) 8.5 Gm Hfa.aer.ad, 1 PUFF INH Q4HRS PRN for SHORTNESS OF BREATH, #1 INHALER 0 Refills Prov:BOBBI CORTEZ DO 09/20/17 Mupirocin Calcium (BACTROBAN CREAM) 15 Gm Cream..g., 1 SYED TP TID, #30 GM Prov:JOSE LARIOS [employer]INDING WHEEL INSPECTOR 02/13/17 Reported Medications Furosemide (FUROSEMIDE) 20 Mg Tablet, 1 TAB PO DAILY for diuretic 03/01/21 Pantoprazole Sodium (Pantoprazole Sodium) 40 Mg Tablet.dr, 1 TAB PO BID for Heartburn 03/01/21 Tacrolimus (Tacrolimus) 30 Gm Oint...g., 30 GM TP BID for preventative 03/01/21 Amlodipine Besylate (AMLODIPINE BESYLATE) 2.5 Mg Tablet, 1 TAB PO DAILY for blo odpressure 03/01/21 Escitalopram Oxalate (Escitalopram Oxalate) 10 Mg Tablet, 1 TAB PO DAILY for depression 03/01/21 Baclofen (BACLOFEN) 20 Mg Tablet, 1 TAB PO TID for spasms 03/01/21 Trazodone Hcl (TRAZODONE HCL) 100 Mg Tablet, 1 TAB PO QHS for insomnia 03/01/21 Buspirone Hcl (BUSPIRONE HCL) 10 Mg Tablet, 1 TAB PO TID PRN for anxiety 03/01/21 Methotrexate Sodium/Pf (METHOTREXATE 50 MG/2 ML VIAL) 25 Mg/1 Ml Vial, 0.6 ML WEEKLY for RA 03/01/21 Tofacitinib Citrate (Xeljanz Xr) 11 Mg Tab.er.24h, 1 TAB PO DAILY for RA 03/01/21 Potassium Citrate (Potassium Citrate) 10 Meq Tablet.er, 1 TAB PO DAILY for supplement 03/01/21 Desmopressin Acetate (DESMOPRESSIN ACETATE) 0.2 Mg Tablet, 1 TAB PO QHS for urinary incontinence 03/01/21 Scheduled Acyclovir (Acyclovir), 1 TAB PO 5XDAY Amlodipine Besylate (Amlodipine Besylate), 1 TAB PO DAILY, (Reported) Azithromycin (Zithromax), 1 PKG PO UD Baclofen (Baclofen), 1 TAB PO TID, (Reported) Desmopressin Acetate (Desmopressin Acetate), 1 TAB PO QHS, (Reported) Escitalopram Oxalate (Escitalopram Oxalate), 1 TAB PO DAILY, (Reported) Furosemide (Furosemide), 1 TAB PO DAILY, (Reported) Methotrexate Sodium/Pf (Methotrexate 50 Mg/2 Ml Vial), 0.6 ML WEEKLY, (Reported) Mupirocin Calcium (Bactroban Cream), 1 SYED TP TID Pantoprazole Sodium (Pantoprazole Sodium), 1 TAB PO BID, (Reported) Potassium Citrate (Potassium Citrate), 1 TAB PO DAILY, (Reported) Tacrolimus (Tacrolimus), 30 GM TP BID, (Reported) Tofacitinib Citrate (Xeljanz Xr), 1 TAB PO DAILY, (Reported) Trazodone Hcl (Trazodone Hcl), 1 TAB PO QHS, (Reported) Scheduled PRN Albuterol Sulfate (Proair Hfa Inhaler), 1 PUFF INH Q4HRS PRN for SHORTNESS OF BREATH Buspirone Hcl (Buspirone Hcl), 1 TAB PO TID PRN for anxiety, (Reported) Total Time: Total Time: Total time spent was 35 minutes in preparing scripts, discharge planning with SW and RN, and preparing this discharge summary. Patient seen and examined on day of discharge. Justicifation of Admission Dx: Justifications for Admission: Justification of Admission Dx: Yes Stroke - Ischemic: Stroke-Ischemic LILLY NANA MD March 04, 2021 21:57
== END 2021-03-01 19:23 | disposition home or self-care (01) ==
LOC: ER 14:17 → 4 NORTH 17:45
PROVIDERS: ADMIT Family Medicine; ATTEND Family Medicine
DX: G44.89 Other headache syndrome (principal); I10 Essential (primary) hypertension; M19.90 Unspecified osteoarthritis, unspecified site; D75.89 Other specified diseases of blood and blood-forming organs; E87.1 Hypo-osmolality and hyponatremia; E86.0 Dehydration; E87.8 Other disorders of electrolyte and fluid balance, not elsewhere classified; F12.90 Cannabis use, unspecified, uncomplicated; M06.9 Rheumatoid arthritis, unspecified; G80.8 Other cerebral palsy; Z87.891 Personal history of nicotine dependence; Z98.51 Tubal ligation status; Z90.49 Acquired absence of other specified parts of digestive tract
CPT/HCPCS: 36415; 70450; 70496; 70498; 70551; 80048; 80053; 85025; 96361; 96374; 96375; 96376; 97165; 99285; G0378; J1200; J2765; J7030; Q9967; G0379